=== PATIENT | female | born 1985 | race Caucasian/White ===

== ENCOUNTER 2017-04-18 05:56 | Inpatient (IN) | payer BC ==
[2017-04-17 14:24] LABS: Hematocrit 38 % (35-47); Mean Corpuscular HGB Conc 34 g/dl (31-36); Mean Corpuscular Hemoglobin 33 pg (27-31); Mean Corpuscular Volume 95 fL (80-97); Mean Platelet Volume 9 um3 (7.4-10.4); Red Blood Count 3.98 10^6/ul (4.0-5.4); Red Cell Distribution Width 13 % (10.5-15); White Blood Count 7.3 10^3/ul (3.5-10.8)
[2017-04-18] MEDS ORDERED: Clindamycin 900 MG IVPREMIX(* 900 MG/50 ML SDV IV ONE (06:43)
[2017-04-18] MEDS ORDERED: Sodium Citrate/Citric Acid* 15 ML UDC ONE (07:53)
[2017-04-18] MEDS ORDERED: Morphine PF AMP (0.5MG/ML)* 5 MG/10 ML AMP ONE (07:55)
[2017-04-18] MEDS ORDERED: Gentamicin ADULT (*) 300 MG in NS 0.9% 250 ML* 250 ML IVPB ONE (08:00)
[2017-04-18] MEDS ORDERED: EPHEDrine (Pressors)* 50 MG/ML VIAL ONE (08:33)
[2017-04-18] MEDS ORDERED: Glycopyrrolate IV* 0.2 MG/ML 1 ML VIAL ONE (08:34)
[2017-04-18] MEDS ORDERED: Phenylephrine IV* 40 MCG/ML 10 ML SYRINGE ONE (08:34)
[2017-04-18] MEDS ORDERED: Ondansetron INJ* 2 MG/ML VIAL IV PRN ×2 (08:53→08:54)
[2017-04-18] MEDS ORDERED: fentaNYL* 50 MCG/ML 2 ML VIAL (100 MCG VIAL) IV PRN (08:53)
[2017-04-18] MEDS ORDERED: DiMENhydriNATE IV* 50 MG/ML VIAL IV PUSH PRN ×2 (08:53→08:54)
[2017-04-18] MEDS ORDERED: HYDROmorphone* 1 MG/ML 1 ML SYR IV PRN (08:53)
[2017-04-18] MEDS ORDERED: diPHENhydraMINE IV* 50 MG/ML 1 ml VIAL (BENADRYL) IV PRN (08:54)
[2017-04-18] MEDS ORDERED: Nalbuphine* 20 MG/ML 1 ML VIAL IV PRN (08:54)
[2017-04-18] MEDS ORDERED: oxyCODONE/Acetamin 5/325 MG* TAB PO PRN (08:54)
[2017-04-18] MEDS ORDERED: Scopolamine 1.5 mg* PATCH TRANSDERM PRN (08:54)
[2017-04-18] MEDS ORDERED: Scopolomine PATCH Remove* 1 NOTE MISC PATCH OFF PRN (08:54)
[2017-04-18] MEDS ORDERED: HYDROcodone/ACETAMIN 5-325 MG* 1 TAB PO PRN (08:54)
[2017-04-18] MEDS ORDERED: Naloxone* 0.4 MG/ML 1 ML VIAL IV PRN (08:54)
[2017-04-18] MEDS ORDERED: Ketorolac INJ* 30 MG/ML 1 ML VIAL ONE (08:57)
[2017-04-18] MEDS ORDERED: OXYTOCIN* 10 UNITS/ML 1 ML VIAL ONE ×2 (09:05)
[2017-04-18] MEDS ORDERED: Witch Hazel PAD* JAR TOPICAL PRN (09:33)
[2017-04-18] MEDS ORDERED: Dibucaine 1% 28.35 GM TUBE PR PRN (09:33)
[2017-04-18] MEDS: Docusate CAP* 100 MG PO SCH ×2 (18:16→21:10)
[2017-04-18] MEDS: Simethicone CHEW TAB* 80 MG PO SCH ×3 (18:16→21:10)
[2017-04-18] MEDS: Ketorolac INJ* 30 MG/ML 1 ML VIAL IV PRN (19:38)
[2017-04-19] MEDS ORDERED: oxyCODONE/Acetamin 5/325 MG* TAB PO PRN (00:15)
--- NOTE | 2017-04-19 01:51 | OP ---
DATE OF OPERATION: 04/18/17 - ROOM #MCHOB-116 DATE OF : 87 SURGEON: Gavin Don MD PROGRAM MANAGEMENT INTERN: Suze Powell CNM ANESTHESIA: Spinal. ANESTHESIOLOGIST: Dr. Robertson. PRE-OP DIAGNOSIS: 39 weeks gestation with breech presentation. POST-OP DIAGNOSIS: 39 weeks gestation with breech presentation. OPERATIVE PROCEDURE: Primary low-transverse section. ESTIMATED BLOOD LOSS: 700 cc. IV FLUIDS: 2200 cc of lactated Ringer's. URINE OUTPUT: 100 cc. MATERIALS TO LAB: Cord blood. INDICATIONS: This patient was a 32-year-old 1, para 0 who presented today at 39 weeks gestation for her scheduled section. The patient was diagnosed with the fetus in the breech presentation about 3 weeks ago and an external systolic version attempt at 37 weeks was unsuccessful. This morning , she was evaluated and the fetus was still in the breech presentation on ultrasound. She was extensively counseled for the surgery and consent was signed. FINDINGS: Normal-appearing uterus, fallopian tubes, and ovaries. Delivery was productive of a female infant weighing 5 pounds 11 ounces with Apgars of 8 and 9. Time of delivery was 0840. The infant was in the footling breech presentation. COMPLICATIONS: None. DESCRIPTION OF PROCEDURE: The risks, benefits, and alternatives were described to the patient and informed consent was obtained. The patient was taken to the operating room with IV running where spinal anesthesia was induced and found to be adequate. The patient was prepped and draped in the normal sterile fashion in the dorsal supine position with leftward tilt. A Pfannenstiel skin incision was made with a scalpel and this was carried down to the underlying fascia sharply. The fascia was then scored in the midline with the scalpel. The incision was extended using Hicks scissors. The rectus muscles were dissected off the rectus fascia using blunt and sharp dissection. The rectus muscles were in the midline bluntly. The peritoneum was also entered bluntly. A bladder blade was placed. A bladder flap was created sharply using Metzenbaum scissors. A low transverse uterine incision was made with the scalpel. This was carried down to the amniotic cavity which was productive of clear fluid. The incision was extended with blunt traction. The head was elevated to the level of the incision without difficulty and delivered through the incision. With fundal pressure, the shoulders and body delivered without difficulty. The infant had an excellent tone and cried immediately on delivery. The cord was doubly clamped and cut. The infant was then handed to the awaiting kilnman. Cord blood was collected. The placenta then delivered with manual extraction. The uterus was then exteriorized and cleared of all clots and debris. Uterine incision was reapproximated using 0 Polysorb in a running-locked fashion. A second layer of imbricating sutures of 0 Polysorb was also placed with good hemostasis. The posterior cul-de-sac was irrigated with saline. The uterus was then returned to the abdomen, and the incision was reinspected and noted to be hemostatic. The peritoneum was closed with 2-0 chromic in a running fashion. The fascia was closed with 0 Polysorb in a running fashion. Subcutaneous tissues were reapproximated using 2-0 chromic and interrupted sutures. The skin was then closed with 4-0 Monocryl in a subcuticular stitch. Mastisol and Steri-Strips were placed over the incision which was then covered with a sterile bandage. The patient tolerated the procedure well. Sponge, lap, and needle counts were correct x2. [id number]/[facility] #: [id number] MTDD
[2017-04-19] MEDS: oxyCODONE/Acetamin 5/325 MG* TAB PO PRN ×5 (03:40→20:29)
[2017-04-19 06:28] LABS: Hematocrit 28 % (35-47); Hemoglobin 9.7 g/dl (12.0-16.0); Mean Corpuscular HGB Conc 35 g/dl (31-36); Mean Corpuscular Hemoglobin 34 pg (27-31); Mean Corpuscular Volume 96 fL (80-97); Mean Platelet Volume 9 um3 (7.4-10.4); Red Blood Count 2.91 10^6/ul (4.0-5.4); Red Cell Distribution Width 13 % (10.5-15); White Blood Count 7.8 10^3/ul (3.5-10.8)
[2017-04-19] MEDS: Ketorolac INJ* 30 MG/ML 1 ML VIAL IV PRN (06:34)
[2017-04-19] MEDS: Simethicone CHEW TAB* 80 MG PO SCH ×4 (09:06→20:28)
[2017-04-19] MEDS: Docusate CAP* 100 MG PO SCH ×3 (09:06→20:28)
[2017-04-19] MEDS: Ferrous Gluconate TAB* 324 MG TAB PO SCH ×2 (09:06→20:28)
[2017-04-19] MEDS: Ibuprofen TAB* 600 MG PO SCH ×2 (12:50→18:22)
[2017-04-20] MEDS: Ibuprofen TAB* 600 MG PO SCH ×3 (01:14→14:19)
[2017-04-20] MEDS: oxyCODONE/Acetamin 5/325 MG* TAB PO PRN ×2 (06:50→13:09)
[2017-04-20] MEDS: Simethicone CHEW TAB* 80 MG PO SCH ×2 (08:09→13:09)
[2017-04-20] MEDS: Ferrous Gluconate TAB* 324 MG TAB PO SCH (08:09)
[2017-04-20] MEDS: Docusate CAP* 100 MG PO SCH ×2 (08:10→14:19)
[2017-04-20 09:42] VITALS: BP 122/51
--- NOTE | 2017-04-20 11:47 | PTEDU ---
Patient Name: KAYCE CAMP KAYCE CAMP selected video: Never Ever Shake a Baby to view on 04/20/2017 at 11:46:38 AM from [id number]
== END 2017-04-20 15:00 | disposition home or self-care (01) | DRG 540 ==
LOC: MCHOB 05:56
PROVIDERS: ADMIT Obstetrics & Gynecology; ATTEND Obstetrics & Gynecology
PROC: 10D00Z1 Extraction of Products of Conception, Low, Open Approach (ICD-10-PCS; principal; 2017-04-18 07:45)
DX: O32.8XX0 Maternal care for other malpresentation of fetus, not applicable or unspecified (principal); O99.824 Streptococcus B carrier state complicating childbirth; Z3A.38 38 weeks gestation of pregnancy; Z37.0 Single live birth; Z87.891 Personal history of nicotine dependence; Z88.1 Allergy status to other antibiotic agents; Z88.0 Allergy status to penicillin; Z98.84 Bariatric surgery status
CPT/HCPCS: 36415; 85025; 85027; 86850; 86900; 86901; A9270-GY; J1580; J1885; J2590

== ENCOUNTER 2018-05-16 15:08 | Emergency (ER) | payer BC, OTHER ==
[2018-05-16 15:48] VITALS: BP 140/67
--- NOTE | 2018-05-16 16:45 | UC ---
Abdominal Pain Female HPI - HPI Summary HPI Summary: Patient with history of lymphoma and gastric sleeve surgery complains of intermittent left-sided abdominal pain and nausea 1 month. Denies fever, cough , sore throat, CP, SOB, V/D, change in urine, change in BM, vaginal symptoms. Abdominal pain described as intermittent, occasionally sharp, occasionally up to 7/10, and occurs 1-2 times a week, pain lasts for up to 2 hours at a time. Abdominal pain is worse today, and worse with deep inhalation. Pain is not improved with OTC meds. LMP 1 week ago. Patient on control. Medical history is lymphoma. Abdominal/pelvic surgical history is cholecystectomy. - History of Current Complaint Chief Complaint: UCAbdominalPain Stated Complaint: left side pain Time Seen by Provider: 05/16/18 16:15 Hx Obtained From: Patient Hx Last Menstrual Period: 05/08/2018 Onset/Duration: Gradual Onset Timing: Intermittent Episodes Lasting: Severity Initially: Mild Severity Currently: Mild Pain Intensity: 2 Pain Scale Used: 0-10 Numeric Location: Discrete At: LUQ Radiates: No Character: Aching, Sharp Aggravating Factor(s): Movement, Deep Breaths Alleviating Factor(s): Nothing Associated Signs and Symptoms: Positive: Nausea Allergies/Adverse Reactions: Allergies Allergy/AdvReac Type Severity Reaction Status Date / Time azithromycin Allergy See Comment Verified 01/16/18 12:27 Penicillins Allergy Hives Verified 01/16/18 12:27 Home Medications: Home Medications Norethindr/Eth Estradiol(Nf) [Lo Loestrin Fe (NF)] 05/16/18 [History] PMH/Surg Hx/FS Hx/Imm Hx - Surgical History Surgical History: Yes Surgery Procedure, Year, and Place: Cholecystectomy, 2016, [place]; Gastric Sleeve, 2015, [place], [id number]. ENDOSCOPY-2014; lymph node biopsy 2017 - Family History Known Family History: Positive: None Family History: no family history of cardio vascular issues reported - Social History Alcohol Use: Weekly Alcohol Amount: 3-4 GLASSES OF WINE WEEKLY Substance Use Type: None Smoking Status (MU): Never Smoked Tobacco Type: Cigarettes Amount Used/How Often: ~1 PPD X 8 YEARS Length of Time of Smoking/Using Tobacco: 20 Years Have You Smoked in the Last Year: No When Did the Patient Quit Smoking/Using Tobacco: 2012 - Immunization History Most Recent Influenza Vaccination: Not the 2015/2016 Season Most Recent Pneumonia Vaccination: none Review of Systems Constitutional: Negative Skin: Negative Eyes: Negative ENT: Negative Respiratory: Negative Cardiovascular: Negative Gastrointestinal: Abdominal Pain, Nausea Genitourinary: Negative Motor: Negative Neurovascular: Negative Musculoskeletal: Negative Neurological: Negative Psychological: Negative All Other Systems Reviewed And Are Negative: Yes Physical Exam - Summary Physical Exam Summary: Abdomen tender to palpation left upper quadrant. Mildly tender left lower quadrant. Abdominal exam otherwise unremarkable. No CVA tenderness. Triage Information Reviewed: Yes Vital Signs: Initial Vital Signs Temp 98.5 F 05/16/18 15:40 Pulse 76 05/16/18 15:40 Resp 18 05/16/18 15:40 BP 140/67 05/16/18 15:40 Pulse Ox 100 05/16/18 15:40 Vital Signs Reviewed: Yes Eye Exam: Normal Neck exam: Normal Respiratory Exam: Normal Cardiovascular Exam: Normal Abdominal Exam: Other Musculoskeletal Exam: Normal Neurological Exam: Normal Psychological Exam: Normal Skin Exam: Normal Abd Pain Female Course/Dx - Course Course Of Treatment: Patient with history of lymphoma and gastric sleeve surgery complains of intermittent left-sided abdominal pain and nausea 1 month. Denies fever, cough, sore throat, CP, SOB, V/D, change in urine, change in BM, vaginal symptoms. Abdominal pain described as intermittent, occasionally sharp, occasionally up to 7/10, and occurs 1-2 times a week, pain lasts for up to 2 hours at a time. Abdominal pain is worse today, and worse with deep inhalation. Pain is not improved with OTC meds. LMP 1 week ago. Patient on control. Medical history is lymphoma. Abdominal/pelvic surgical history is cholecystectomy. Physical exam:Abdomen tender to palpation left upper quadrant. Mildly tender left lower quadrant. Abdominal exam otherwise unremarkable. No CVA tenderness. Vital signs normal. History of gastric sleeve surgery. Advised patient to go to the ED now for better evaluation of her abdominal pain. Patient understands and approves plan. - Differential Dx/Diagnosis Provider Diagnoses: left side abdominal pain Discharge - Sign-Out/Discharge Documenting (check all that apply): Patient Departure All imaging exams completed and their final reports reviewed: No Studies - Discharge Plan Condition: Stable Disposition: HOME-RECOMMEND TO ED Patient Education Materials: Abdominal Pain (ED) Referrals: Luis Santos MD [Primary Care Provider] - Additional Instructions: Please go to the ED now for better evaluation of your abdominal pain. - Billing Disposition and Condition Condition: STABLE Disposition: Home-Recommend to ED - Attestation Statements Provider Attestation: I was available for consult. This patient was seen by the ALE. The patient was not presented to, seen by, or examined by me. -Amrita
== END 2018-05-16 16:55 | disposition home health service (06) ==
LOC: UCEAST 15:08
DX: R10.12 Left upper quadrant pain (principal); R10.32 Left lower quadrant pain; R11.0 Nausea; Z90.49 Acquired absence of other specified parts of digestive tract; Z98.84 Bariatric surgery status; Z88.1 Allergy status to other antibiotic agents; Z88.0 Allergy status to penicillin; Z87.891 Personal history of nicotine dependence
CPT/HCPCS: 81003; 99212; G0463

== ENCOUNTER 2018-05-16 17:16 | Emergency (ER) | payer BC, OTHER ==
[2018-05-16 19:05] VITALS: BP 121/63
== END 2018-05-16 19:10 | disposition left against medical advice (07) ==
LOC: ED 17:16
DX: R10.9 Unspecified abdominal pain (principal); Z53.21 Procedure and treatment not carried out due to patient leaving prior to being seen by health care provider

== ENCOUNTER → 2018-09-20 10:15 | Day surgery (SDC) | payer BC, OTHER ==
[~2018-09-20 10:15] MED LIST: Acetaminophen TAB* 325 MG PO PRN; Buffered Lidocaine 0.9% SYRIN* 5 ML/SYR SYRINGE INTRADERM ONE; Clindamycin 900 MG/D5W BAG(*) 900 MG/50 ML BAG IVPB ONE; DiMENhydriNATE IV* 50 MG/ML VIAL IV PUSH PRN; Famotidine IV* 10 MG/ML 2 ML (20 mg) ONE; HYDROcodone/ACETAMIN 5-325 MG* 1 TAB PO PRN; Lactated Ringers 1000 ML Bag* 1,000 ML IV SCH; Levalbuterol 0.63MG/3ML NEB* UNIT OF USE INH PRN; Lidocain 1% EPI 1:100,000 * 30 ML MDV ONE; Lidocaine 2% PF * 5 ML VIAL ONE; Midazolam* 1 MG/ML 2 ML VIAL (2 MG) ONE; Naloxone* 0.4 MG/ML 1 ML VIAL IV PRN; Ondansetron INJ* 2 MG/ML VIAL IV PRN; PROCHLORPERAZINE INJ 5 MG/ML 2 ML VIAL IV PRN; Propofol* 10 MG/ML 20 ML BTL ONE; fentaNYL* 50 MCG/ML 2 ML VIAL (100 MCG VIAL) ONE
--- NOTE | 2018-09-20 14:10 | BRIEFOPN ---
Brief Operative Note - Surgery Procedures: Procedures Pre-OP Diagnoses: lymphoma Post-op Diagnosis: same Procedure: Insertion of powerport Surgeon: Pedro Asst: none Anethesia: local, ALICIA Diehl EBL: minimal IVF: minimal Specimen: none Drains: none 8Fr single lumen power port via R SCV
[2018-09-20 16:03] VITALS: BP 127/73
--- NOTE | 2018-09-20 21:43 | OP ---
CC: Dr. Devyn Olivera; Dr. Luis Santos * DATE OF OPERATION: 09/20/18 - [facility] DATE OF : 87 SURGEON: Jordan Vasquez MD. CONDENSER OPERATOR: None. ANESTHESIOLOGIST: Dr. Diehl. ANESTHESIA: Local MAC anesthesia. PRE-OP DIAGNOSIS: Lymphoma. POST-OP DIAGNOSIS: Lymphoma. OPERATIVE PROCEDURE: Insertion of PowerPort. ESTIMATED BLOOD LOSS: Minimal. FLUIDS: Minimal crystalloid fluid given. CATHETER: 8-Guamanian PowerPort catheter inserted via the right subclavian vein. DESCRIPTION OF PROCEDURE: The patient was identified in the preoperative area, marked, and consent signed. She was taken to the operating room, placed on the operating table in supine position. Gentle sedation was given. Preoperative antibiotics were given. Sequential devices were placed on bilateral lower extremities. The patient's right upper chest and neck were prepped and draped in standard surgical fashion, a time-out was performed. Injection of lidocaine was carried out along the proposed stick site. The right subclavian vein was accessed and a wire inserted towards the superior vena cava. This was confirmed with fluoroscopy. Next, an incision was made inferior to the wire and a pocket was made for the PowerPort. The wire was then brought into this incision. Next, under fluoroscopy, the vein was dilated. This proved somewhat difficult, but we were able to pass the dilator in and then the split-away catheter in as well. The 8-Guamanian tubing was then inserted and cut to size after the split- away catheter removed. It was attached to the pre-flushed PowerPort, which was then placed into the pocket and sutured at the lateral aspect, medial aspect, and at the hub with 0 Prolene suture. We then irrigated, aspirated blood with ease, and injected heparinized saline, and closed the incision in a typical fashion with 3-0 Vicryl, followed by 4-0 Monocryl subcuticular suture. Steri- Strips and sterile dressing were applied. The patient tolerated the procedure well and was transferred to the PACU in stable condition. [id number]/[facility] #: [id number] [facility]
== END | disposition home or self-care (01) ==
LOC: OR 10:15
PROVIDERS: ATTEND Surgery
DX: C82.18 Follicular lymphoma grade II, lymph nodes of multiple sites (principal); Z87.891 Personal history of nicotine dependence; Z88.0 Allergy status to penicillin
CPT/HCPCS: 71045; 76000; 81025; C1788; J1642; J2250; J2704; J3010

== ENCOUNTER 2018-10-21 10:43 | Emergency (ER) | payer BC, OTHER ==
[2018-10-21 11:30] VITALS: BP 131/80
--- NOTE | 2018-10-21 11:47 | UC ---
"[facility] Dental HPI - History of Current Complaint Chief Complaint: UCDentalProblem Stated Complaint: SORE TOOTH Time Seen by Provider: 10/21/18 11:44 Hx Last Menstrual Period: 09/21/18 Pain Intensity: 4 - Allergies/Home Medications Allergies/Adverse Reactions: Allergies Allergy/AdvReac Type Severity Reaction Status Date / Time azithromycin Allergy Swelling Verified 10/21/18 11:30 and Hives on Arms Penicillins Allergy Hives Verified 10/21/18 11:30 PMH/Surg Hx/FS Hx/Imm Hx - Surgical History Surgical History: Yes Surgery Procedure, Year, and Place: Cholecystectomy, 2015, [place]; Gastric Sleeve, 2014, [place], [id number]. ENDOSCOPY-2014; Lymph Node Biopsy 2016 - Family History Known Family History: Positive: None Family History: no family history of cardio vascular issues reported - Social History Alcohol Use: Occasionally Alcohol Amount: 1-2 GLASSES OF WINE WEEKLY Substance Use Type: None Smoking Status (MU): Former Smoker Type: Cigarettes Amount Used/How Often: ~=1 PPD X 8 YEARS Length of Time of Smoking/Using Tobacco: 20 Years Have You Smoked in the Last Year: No When Did the Patient Quit Smoking/Using Tobacco: fall - Immunization History Most Recent Influenza Vaccination: Not the Season Most Recent Pneumonia Vaccination: none Physical Exam Vital Signs: Initial Vital Signs Temp 99.1 F 10/21/18 11:27 Pulse 95 10/21/18 11:27 Resp 12 10/21/18 11:27 BP 131/80 10/21/18 11:27 Pulse Ox 100 10/21/18 11:27 Dental Complaint Course/Dx - Course Course Of Treatment: This report was requested by: Sally Sanches | Reference # : [id number] Discharge - Discharge Plan Referrals: Luis Santos MD [Primary Care Provider] -"
== END 2018-10-21 12:12 | disposition home or self-care (01) ==
LOC: UCEAST 10:43
DX: K08.89 Other specified disorders of teeth and supporting structures (principal); Z88.1 Allergy status to other antibiotic agents; Z88.0 Allergy status to penicillin; Z87.891 Personal history of nicotine dependence
CPT/HCPCS: 99212; G0463

== ENCOUNTER 2019-06-09 09:38 | Emergency (ER) | payer BC, OTHER ==
[2019-06-09 10:11] VITALS: BP 128/74
--- NOTE | 2019-06-09 10:39 | UC ---
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 States this morning she noticed swelling under her tongue as well. She is followed by Dr. Marti for her lymphoma. Denies fever, chills, dental pain, sore throat, dysphagia, or difficulty breathing. - History of Current Complaint Chief Complaint: UCGeneralIllness Stated Complaint: DENTAL/ORAL Time Seen by Provider: 06/09/19 10:18 Hx Obtained From: Patient Hx Last Menstrual Period: using mirana Pain Intensity: 2 - Allergies/Home Medications Allergies/Adverse Reactions: Allergies Allergy/AdvReac Type Severity Reaction Status Date / Time azithromycin Allergy Swelling Verified 06/09/19 10:11 and Hives on Arms Penicillins Allergy Hives Verified 06/09/19 10:11 Home Medications: Home Medications Levonorgestrel (Iud) [Mirena IUD] 0 mcg 06/09/19 [History] PMH/Surg Hx/FS Hx/Imm Hx Previously Healthy: Yes Other Cancer History: Stage IV follicular lymphoma - Surgical History Surgical History: Yes Surgery Procedure, Year, and Place: Cholecystectomy, 2015, [place]; Gastric Sleeve, 2014, [place], [id number]. ENDOSCOPY-2014; Lymph Node Biopsy 2016 - Family History Known Family History: Positive: Non-Contributory - Social History Occupation: Employed Full-time Lives: With Family Alcohol Use: Occasionally Alcohol Amount: 1-2 GLASSES OF WINE WEEKLY Substance Use Type: None Smoking Status (MU): Former Smoker Type: Cigarettes Amount Used/How Often: ~=1 PPD X 8 YEARS Length of Time of Smoking/Using Tobacco: 20 Years Have You Smoked in the Last Year: No When Did the Patient Quit Smoking/Using Tobacco: fall - Immunization History Most Recent Influenza Vaccination: Not the 2016/2016 Season Most Recent Pneumonia Vaccination: none Review of Systems All Other Systems Reviewed And Are Negative: Yes Constitutional: Negative: Fever, Chills, Fatigue Skin: Negative: Rash Eyes: Negative: Drainage, Eye Redness ENT: Negative: Sore Throat, Ear Ache, Nasal Discharge, Sinus Congestion, Sinus Pain/Tenderness Respiratory: Negative: Shortness Of Breath, Cough Cardiovascular: Negative: Palpitations, Chest Pain Gastrointestinal: Positive: Negative Genitourinary: Positive: Negative Musculoskeletal: Positive: Negative Neurological: Positive: Negative Is Patient Immunocompromised?: No Physical Exam - Summary Physical Exam Summary: GENERAL APPEARANCE: Well developed, well nourished, alert and cooperative, and appears to be in no acute distress. HEAD: Moderate edema noted along the left mandible and neck with mild erythema. EYES: Conjunctiva clear. No drainage. EARS: External auditory canals and tympanic membranes clear, hearing grossly intact. NOSE: No nasal discharge. THROAT: Pharynx normal. No tonsilar inflammation, swelling, exudate, or lesions. Uvula midline. Mild edema noted under left side of tongue. No dental abscess or lesions noted. NECK: Significant left sided anterior cervical lymphadenopathy. CARDIAC: Normal S1 and S2. No S3, S4 or murmurs. Rhythm is regular. There is no peripheral edema, cyanosis or pallor. Extremities are warm and well perfused. Capillary refill is less than 2 seconds. Peripheral pulses intact. LUNGS: Clear to auscultation without rales, rhonchi, wheezing or diminished breath sounds. ABDOMEN: Positive bowel sounds. Soft, nondistended, nontender. No guarding or rebound. No masses or hepatosplenomegally. MUSKULOSKELETAL: ROM intact to all extremities. No joint erythema or tenderness. Normal muscular development. Normal gait. SKIN: Skin normal color, texture and turgor with no lesions or eruptions. 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 States this morning she noticed swelling under her tongue as well. She is followed by Dr. Marti for her lymphoma. Denies fever, chills, dental pain, sore throat, dysphagia, or difficulty breathing. Mildly elevated temperature of 100.0 F. Mildly tachycardic otherwise vital signs stable. Patient had moderate edema noted along the left mandible and neck with mild erythema, normal pharynx without tonsilar swelling or exudate, mild edema noted under left side of tongue without dental abscess or lesions noted, patent airway, significant left anterior cervical lymphadenopathy, and otherwise unremarkable exam. I discussed with the patient that with her history, mildly elevated temperature, and exam findings I feel that she needs to be further evaluated in the emergency room at this time. Patient is agreeable to this and is electing to go to [facility] emergency room via private vehicle at this time. - Differential Dx/Diagnosis Differential Diagnosis/HQI/PQRI: Giles's Angina, Pharyngitis, Other - dental infection, lymphoma Provider Diagnosis: Facial swelling, Lymphadenopathy Discharge ED - Sign-Out/Discharge Documenting (check all that apply): Patient Departure All imaging exams completed and their final reports reviewed: No Studies - Discharge Plan Condition: Stable Disposition: HOME-RECOMMEND TO ED Referrals: Luis Santos MD [Primary Care Provider] - Additional Instructions: With your history of lymphoma, low grade temperature, facial swelling, and significant swelling of the lymph nodes I am recommending that you go to the emergency room for further evaluation. Please go directly to the emergency room from here. - Billing Disposition and Condition Condition: STABLE Disposition: Home-Recommend to ED
== END 2019-06-09 10:45 | disposition home health service (06) ==
LOC: UCCORT 09:38
DX: R22.0 Localized swelling, mass and lump, head (principal); R59.1 Generalized enlarged lymph nodes; Z87.891 Personal history of nicotine dependence; Z88.0 Allergy status to penicillin
CPT/HCPCS: 99212; G0463

== ENCOUNTER 2019-06-09 11:57 | Inpatient (IN) | payer BC, OTHER ==
[2019-06-09] MEDS ORDERED: Lactated Ringers 1000 ML Bag* 1,000 ML IV.FLUID IV ONE (13:58)
[2019-06-09] MEDS ORDERED: Acetaminophen TAB* 325 MG PO ONE (14:00)
[2019-06-09] MEDS ORDERED: Clindamycin 600 MG IVPREMIX(* 600 MG/50 ML SDV IV ONE (14:12)
--- NOTE | 2019-06-09 14:12 | ED ---
Throat Pain/Nasal Congestion - HPI Summary HPI Summary: This pt is a 34 y/o female, on remission for non-hodgkin's lymphoma since February 2019, presenting to [facility] c/o swollen gums since 2 days ago. Pt reports her gums are not bleeding but gum swelling has been worsening. She notes her swelling today has spread to under her tongue, her neck and lymph nodes. Additionally she states she has a stiff neck and headache since 2 days ago and today she has a low grade fever. Pt went to Urgent Care today and was referred to the ED for further testing. - History of Current Complaint Chief Complaint: EDGeneral Time Seen by Provider: 06/09/19 13:57 Hx Obtained From: Patient Onset/Duration: Lasting Days, Still Present Severity: Moderate Associated Signs And Symptoms: Negative: Dysphagia, FB Sensation, Drooling, Wheezing, Hoarseness, Sinus Discomfort, Nasal Discharge Cough: None Related History: Other (Noted In Comments) - on remission for non-hodgkin's lymphoma - Allergies/Home Medications Allergies/Adverse Reactions: Allergies Allergy/AdvReac Type Severity Reaction Status Date / Time azithromycin Allergy Swelling Verified 06/09/19 10:11 and Hives on Arms Penicillins Allergy Hives Verified 06/09/19 10:11 PMH/Surg Hx/FS Hx/Imm Hx Endocrine/Hematology History: Reports: Hx Bone Marrow Disease - Follicular Lymphoma Grade II, Lymp nodes of multiple sites, Hx Anemia - DURING Denies: Hx Diabetes Cardiovascular History: Denies: Hx Hypertension - ELEVATED PRIOR TO WEIGHT LOSS, Other Cardiovascular Problems/Disorders Respiratory History: Reports: Other Respiratory Problems/Disorders - Rhinitis Comment Only: Hx Sleep Apnea - INCONCLUSIVE TESTING PRIOR TO WEIGHT LOSS- STATED NO FURTHER F/U REQUIRED GI History: Reports: Hx Hiatal Hernia - ?- STATES A HERNIA WAS REPAIRED DURING GASTRIC SLEEVE SURGERY, Other GI Disorders - Sleeve Gastrectomy 2014, Constipation History: Reports: Other Problems/Disorders - Polycystic Ovaries Denies: Hx Dialysis, Hx Renal Disease Musculoskeletal History: Reports: Hx Bursitis - 2009-SHOULDER Denies: Other Musculoskeletal History Sensory History: Reports: Hx Contacts or Glasses - Glasses and contacts, to wear glasses the day of surgery Denies: Hx Hearing Aid Opthamlomology History: Reports: Hx Contacts or Glasses - Glasses and contacts, to wear glasses the day of surgery Neurological History: Reports: Hx Migraine - 10/2016- DURING Denies: Other Neuro Impairments/Disorders - Cancer History Cancer Type, Location and Year: Lymphoma-remission in February 2019 - Surgical History Surgical History: Yes Surgery Procedure, Year, and Place: Cholecystectomy, 2016, [place]; Gastric Sleeve, 2015, [place], [id number]. ENDOSCOPY-2014; Lymph Node Biopsy 2017 Hx Anesthesia Reactions: Yes - Buring C section BP droopped 58/34 Infectious Disease History: No Infectious Disease History: Denies: Traveled Outside the [place] in Last 30 Days - Family History Known Family History: Negative: Cardiac Disease Family History: no family history of cardio vascular issues reported - Social History Alcohol Use: Occasionally Alcohol Amount: 1-2 GLASSES OF WINE WEEKLY Substance Use Type: Reports: None Smoking Status (MU): Former Smoker Type: Cigarettes Amount Used/How Often: ~=1 PPD X 8 YEARS Length of Time of Smoking/Using Tobacco: 20 Years Have You Smoked in the Last Year: No Review of Systems Positive: Fever ENT: Other - POSITIVE: gum redness and swelling Musculoskeletal: Other - POSITIVE: stiff neck, neck swelling Positive: Headache All Other Systems Reviewed And Are Negative: Yes Physical Exam - Summary Physical Exam Summary: Appearance: The patient is well-nourished in no acute distress and in no acute pain. Skin: The skin is warm and dry, and skin color reflects adequate perfusion. HEENT: The head is normocephalic and atraumatic. The pupils are equal and reactive. The conjunctivae are clear and without drainage. Nares are patent and without drainage. Mouth reveals moist mucous membranes. Mouth has erythema of the lower gum and floor of her mouth. The external ears are intact. The ear canals are patent and without drainage. The tympanic membranes are intact. Neck: The neck is supple with full range of motion and non-tender. There are no carotid bruits. There is no neck vein distension. Patient has anterior cervical lymphadenopathy. Respiratory: Chest is non-tender. Lungs are clear to auscultation and breath sounds are symmetrical and equal. Cardiovascular: Heart is tachycardic but regular rhythm. There is no murmur or rub auscultated. There is no peripheral edema and pulses are symmetrical and equal. Abdomen: The abdomen is soft and non-tender. There are normal bowel sounds heard in all four quadrants and there is no organomegaly palpated. Musculoskeletal: There is no back tenderness noted. Extremities are non-tender with full range of motion. There is good capillary refill. There is no peripheral edema or calf tenderness elicited. Neurological: Patient is alert and oriented to person, place and time. The patient has symmetrical motor strength in all four extremities. Cranial nerves are grossly intact. Deep tendon reflexes are symmetrical and equal in all four extremities. Psychiatric: The patient has an appropriate affect and does not exhibit any anxiety or depression. Triage Information Reviewed: Yes Vital Signs On Initial Exam: Initial Vitals Temp Pulse Resp BP Pulse Ox 100.7 F 134 17 161/94 99 06/09/19 12:00 06/09/19 12:00 06/09/19 12:00 06/09/19 12:00 06/09/19 12:00 Vital Signs Reviewed: Yes Procedures - Procedure Summary Procedure Summary: I performed a lumbar puncture after obtaining informed consent and a time out. She was in a sitting position and after numbing the skin 22-gauge needle was used to enter the CSF on the first pass. About 6 cc of clear liquid was obtained and the needle was removed. She tolerated the procedure well. Because she is neutropenic I performed the procedure in a sterile gown with as aseptic a surroundings as I could obtain. Diagnostics - Vital Signs Vital Signs Temp Pulse Resp BP Pulse Ox 06/09/19 12:00 100.7 F 134 17 161/94 99 - Laboratory Result Diagrams: 06/10/19 06:04 06/10/19 06:04 Lab Statement: Any lab studies that have been ordered have been reviewed, and results considered in the medical decision making process. - Radiology Chest XR Radiology Interpretation Completed By: Radiologist Summary of Radiographic Findings: IMPRESSION: LINES AND TUBES ABOVE. NO ACTIVE CARDIOPULMONARY DISEASE. Dr. Mabry has reviewed this radiology report. - CT Neck CT Interpretation Completed By: Radiologist Summary of CT Findings: NO LYMPHADENOPATHY BY SIZE CRITERIA. NO LOCULATED FLUID COLLECTION TO SUGGEST ABSCESS. Dr. Mabry has reviewed this radiology report. Re-Evaluation - Re-Evaluation First Eval Re-Evaluation Time: 16:42 Comment: Discussed results with patient. Patient agrees to have lumbar puncture performed. Risks and benefits discussed. Second Eval Re-Evaluation Time: 17:00 Comment: Lumbar puncture performed without complication. EENT Course/Dx - Course Course Of Treatment: Ms. Quinones presented with a concern for pain in her gums and mouth. She was noted to have a fever and be tachycardic when I saw her. However she was nontoxic in appearance. I saw her about 2 hours after presentation and immediately ordered fluids and clindamycin based on the possibility of an intraoral infection. She did not have brawny edema on the floor of her mouth but was tender and erythematous. When her white blood cell count returned at 1.3 with an ANC of 0, I contacted Dr. Boucher who recommended cefepime and admission to the hospitalist. I spoke with Dr. Fuentes of the hospitalists for admission. They requested an LP which I performed obtaining 6 cc of clear fluid. She had an opening pressure of 21 which was about the level of her head as the procedure was performed sitting. - Diagnoses Provider Diagnoses: Neutropenia, Fever - Provider Notifications Discussed Care Of Patient With: Tara Marti Time Discussed With Above Provider: 15:41 Instructed by Provider To: Other - Discussed patient case with Dr. Marti, oncologist, who recommended Cefepime and that the patient be admitted to [facility]. At 1614, discussed patient case with Dr. Fuentes, hospitalist, who accepted the patient for admission to [facility]. At 1640, discussed patient case with Gato Richmond NP, who agreed with need to perform lumbar puncture procedure. - Critical Care Time Critical Care Time: 30-74 min - 30 minutes Discharge ED - Sign-Out/Discharge Documenting (check all that apply): Patient Departure - Admit Patient Received Moderate/Deep Sedation with Procedure: No - Discharge Plan Condition: Fair Disposition: ADMITTED TO [facility] - Billing Disposition and Condition Condition: FAIR Disposition: Admitted to [facility] - Attestation Statements Document Initiated by Lauren: Yes Documenting Scribe: Manju Ross Provider For Whom Lauren is Documenting (Include Credential): Umang Mabry MD Scribe Attestation: Manju Mccarthy, scribed for Umang Mabry MD on 06/10/19 at 0922. Scribe Documentation Reviewed: Yes Provider Attestation: The documentation as recorded by the Manju rangel accurately reflects the service I personally performed and the decisions made by me, Umang Mabry MD Status of Scribe Document: Viewed
[2019-06-09 14:35] LABS: Hematocrit 40 % (35-47); Hemoglobin 13.8 g/dL (12.0-16.0); Mean Corpuscular HGB Conc 35 g/dL (31-36); Mean Corpuscular Hemoglobin 31 pg (27-31); Mean Corpuscular Volume 89 fL (80-97); Mean Platelet Volume 8.1 fL (7.4-10.4); Platelet Count 242 10^3/uL (150-450); Red Blood Count 4.47 10^6 /uL (3.70-4.87); Red Cell Distribution Width 13 % (10-15); White Blood Count 1.3 10^3/uL (3.5-10.8)
[2019-06-09 14:42] LABS: Activated Partial Thrombo Time 36.5 seconds (26.0-38.0); INR 1.18 (0.82-1.09)
[2019-06-09 14:56] LABS: Albumin 4.5 g/dL (3.2-5.2); Albumin/Globulin Ratio 1.6 (1-3); BUN/Creatinine Ratio 15.5 (8-20); C Reactive Protein 129.52 mg/L (<8.01); Calcium 9.3 mg/dL (8.6-10.3); EGFR African American 114.7 (>60); EGFR Non-African American 94.8 (>60); Globulin 2.8 g/dL (2-4); Potassium 3.6 mmol/L (3.5-5.0); Total Bilirubin 1.7 mg/dL (0.2-1.0); Total Protein 7.3 g/dL (6.4-8.9)
[2019-06-09 15:04] LABS: HCG Pregnancy 0.94 mIU/mL
[2019-06-09] MEDS ORDERED: Iohexol 300* (CONTRAST) 10 ML SDV IV ONE (15:22)
[2019-06-09 15:39] LABS: ABS Lymphocytes 0.6 10^3/ul (1.0-4.8); ABS Monocytes 0.6 10^3/ul (0-0.8); Eosinophil % 0.6 %; Lymphocyte % 49.3 %; Nucleated Red Blood Cells % 0.1
[2019-06-09 15:44] LABS: Microcytosis 1+
[2019-06-09] MEDS ORDERED: Cefepime 2 GM in Dextrose(*) 2 GM/50 ML BAG IV ONE (16:00)
[2019-06-09] MEDS ORDERED: Ondansetron INJ* 2 MG/ML VIAL IV PRN (17:00)
[2019-06-09 17:37] LABS: Body Fluid Source Cerebral Spinal
[2019-06-09 17:54] LABS: CSF Glucose 66 mg/dL (40-70)
[2019-06-09 17:59] LABS: Urine Appearance Clear; Urine Bacteria 1+ (Absent); Urine Bilirubin Negative (Negative); Urine Blood 1+ (Negative); Urine Color Yellow; Urine Glucose Negative (Negative); Urine Ketones Negative (Negative); Urine Nitrite Negative (Negative); Urine Protein Negative (Negative); Urine Red Blood Cell Trace(0-2/hpf) (Absent); Urine Specific Gravity 1.026 (1.010-1.030); Urine Squamous Epithelial Cell Present (Absent); Urine Urobilinogen Negative (Negative); Urine White Blood Cell Trace(0-5/hpf) (Absent)
[2019-06-09] MEDS ORDERED: NS 0.9% IVPB SCH ×2 (18:00)
[2019-06-09] MEDS ORDERED: Acyclovir IV(*) 500 MG/10 ML 100 ML VIAL (500 MG) IVPB SCH (18:00)
[2019-06-09] MEDS ORDERED: ACYCLOVIR IVPB SCH ×2 (18:00)
--- NOTE | 2019-06-09 19:10 | HP ---
CC: Dr. Marti; Dr. Rincon; Dr. Santos * HISTORY AND PHYSICAL: DATE OF ADMISSION: 06/09/19 PRIMARY CARE PROVIDER: Dr. Santos. MY ATTENDING PHYSICIAN WHILE IN THE HOSPITAL: Dr. Jaime Fuentes * (report being dictated by Reji Richmond NP). CONSULTING ID SPECIALIST: Dr. Rincon. CONSULTING ONCOLOGIST/WAX BLENDER: Dr. Marti. CHIEF COMPLAINT: 1. Fever. 2. Dental pain. 3. Headache. 4. Neck pain. HISTORY OF PRESENT ILLNESS: Mrs. Quinones is a 34-year-old female patient who has a history of follicular lymphoma, last treatment was in January and has subsequently had been doing well with the exception on she developed pain and swelling in the lower part of her gumline. She went to her dentist, they could not find anything wrong. She noticed that underneath her chin, she started to notice some swelling there and she in addition to this was also been having headache and fever right along with this, which was concerning to her. The pain was not getting any better, the swelling was not getting better. She was having persistent fever and chills, so she came into the ER today. While in the ER, it was noted that she did have a absolute neutrophil count of 0, but again had not been receiving chemo treatment in sometime. Because of these findings, there was concern and we are asked to evaluate for admission. She denies any chest pain, denies abdominal pain, denies having any urinary symptoms , and denies having any back pain with the exception that she states stating that it hurts in her neck. Because of these, again the findings on her labs, and her complaints we were asked to evaluate for admission. PAST MEDICAL HISTORY: Significant for follicular lymphoma. PAST SURGICAL HISTORY: 1. She has had gastric bypass. 2. Laparoscopic cholecystectomy. 3. PowerPort placement. 4. Lymph node biopsy. HOME MEDICATIONS: She does have a Mirena IUD, otherwise does not take any meds routinely. ALLERGIES: Include ZITHROMAX and PENICILLIN. FAMILY HISTORY: Her mother was diabetic. Father's history is unknown. SOCIAL HISTORY: She does not smoke. Occasionally drinks wine. She works for [employer], here in [place]. Surrogate decision maker is . REVIEW OF SYSTEMS: There is a documented fevers. She denied any significant weight change. There is no ear discharge. There is no rhinorrhea. There is no sore throat. There is no thyroid enlargement. She denied having any chest pain. There is no orthopnea. There is no nocturnal dyspnea. No abdominal pain. No nausea. No vomiting. No dysuria. No frequency. No seizure. No loss of consciousness. No pruritus. No skin ulcerations. Review of 14 systems completed, all others negative. PHYSICAL EXAMINATION GENERAL: At this time, Ms. Quinones is a 34-year-old female patient. She is well nourished, well developed. She is sitting in the ED stretcher. She does not appear to be in acute distress. VITAL SIGNS: Blood pressure 161/94, pulse 134, respirations 17, O2 sat 99%, temperature 100.7. HEENT: Head: Atraumatic. Normocephalic. Eyes: EOMs are intact. Sclerae anicteric, not pale. There were some mild swelling in the lower gumline, but not erythema. NECK: Supple. She was able to move the neck freely, but again she had pain with range of motion. Throat: Oral mucosa appears to be moist. No oropharyngeal erythema. LUNGS: Clear to auscultation bilaterally. No wheezes, rales, or rhonchi. HEART: Sounds S1, S2. Regular rate and rhythm. No murmur rubs or gallops. ABDOMEN: Soft, it was flat, nontender. Bowel sounds are present. EXTREMITIES: Pulses were 2+ throughout. She had no peripheral edema. She is moving all 4 extremities with 5/5 strength. NEUROLOGICAL: She is awake, alert. She is oriented x3. Tongue midline, Cranberry Grower equal. She had no gross focal deficits. SKIN: The skin is intact. DIAGNOSTIC STUDIES/LAB DATA: Labs revealed a WBC of 1.3, RBC of 4.47, hemoglobin of 13.8, hematocrit of 40, and platelet count of 242, absolute neutrophil 0, absolute lymph 0.6, INR 1.18, PTT of 36.1. Sodium 136, potassium 3.6, chloride 101, bicarb 28, BUN 11, creatinine 0.71, glucose 103, lactic 0.6, calcium 9.3, total bili 1.7, AST 8, ALT 6, alk phos 48, troponin 0, CRP 129, albumin of 4.5, beta hCG was 0.94. She had neck CT obtained today, which revealed no lymphadenopathy by size criteria, no loculated fluid collection to suggest abscess. Chest x-ray obtained today revealed no active cardiopulmonary disease. Old medical records reviewed. ASSESSMENT AND PLAN: Mrs. Quinones is a 34-year-old female patient coming into the ED today with complaints of neck pain, headache, having swelling in her lower gumline and swelling near her chin and neck area. She came in presenting , it was noted that she was neutropenic. In addition to this, was also noted she had a high fever. Because of these findings, we are asked to evaluate for admission. She will be admitted under inpatient status for: 1. Sepsis with unclear source. At this point again, she will be treated with fluid. She did receive 30 cc per kg. She did receive antibiotics, I am going to put her on cefepime 2 g every 8 hours because of the neutropenia and I am actually going to cover her with azithromycin and because of the headache and neck pain, I do think that is appropriate to go ahead with an LP to look for other causes. I will check CSF for cell studies, we will send cultures, we will check Lyme. I will also check West Nile, I will check HSV given the gum pain that she was describing and now this neck and headache, I do want to make sure that she does not have HSV encephalitis and we will also check Lyme and I do note that the ER has not sent off EBV panel as well, which I agree with. I also will place a consult to ID and given the history of lymphoma, I am also placing a consult to Dr. Marti from Oncology/Hematology. We will continue with broad-spectrum antibiotic coverage and we will update and narrow the coverage as studies come back and she will be [place] cultured. 2. History of lymphoma. Again, I am consulting with Hematology/ oncology. 3. DVT prophylaxis. I have ordered SCDs. 4. Code status. Full code. 5. Fluids, electrolytes, and nutrition. She can have a regular diet. TIME SPENT: Time spent on the admission 60 minutes, greater than half of the time spent [id number] with patient obtaining my history and physical, other half time was spent on going over the plan of care with the patient and implementing the plan of care. I did discuss plan of care with my attending, Dr. Fuentes; he is in agreement. REJI RICHMOND NP [id number]/[facility] #: [id number] MINDA
[2019-06-09] MEDS: NS 0.9% 1000 ML** 1,000 ML IV SCH (19:59)
[2019-06-10] MEDS: Acetaminophen TAB* 325 MG PO PRN ×4 (00:10→22:07)
[2019-06-10] MEDS: Cefepime(*) 2 GM in NS 0.9% 50 ML* 50 ML IVPB SCH ×3 (01:23→17:38)
[2019-06-10] MEDS ORDERED: Cefepime 2 GM in Dextrose(*) 2 GM/50 ML BAG IV SCH (02:00)
[2019-06-10] MEDS: NS 0.9% 1000 ML** 1,000 ML IV SCH ×2 (02:21→15:05)
[2019-06-10 06:43] LABS: INR 1.2 (0.82-1.09)
[2019-06-10 06:46] LABS: ABS Lymphocytes 0.3 10^3/ul (1.0-4.8); ABS Monocytes 0.5 10^3/ul (0-0.8); Hematocrit 36 % (35-47); Hemoglobin 12.6 g/dL (12.0-16.0); Lymphocyte % 39.4 %; Mean Corpuscular HGB Conc 35 g/dL (31-36); Mean Corpuscular Hemoglobin 31 pg (27-31); Mean Corpuscular Volume 89 fL (80-97); Nucleated Red Blood Cells % 0.2; Platelet Count 201 10^3/uL (150-450); Red Blood Count 4.09 10^6 /uL (3.70-4.87); Red Cell Distribution Width 13 % (10-15); White Blood Count 0.8 10^3/uL (3.5-10.8)
[2019-06-10 06:56] LABS: BUN/Creatinine Ratio 14.3 (8-20); Calcium 8.5 mg/dL (8.6-10.3); EGFR African American 131.7 (>60); EGFR Non-African American 108.8 (>60); Potassium 3.5 mmol/L (3.5-5.0)
--- NOTE | 2019-06-10 08:03 | PN ---
Progress Note - Progress Note Date of Service: 06/10/19 SOAP: Patient very well known to me. H/O high grade follicular lymphoma sp R-CHOP chemotherapy finishing in January of 2019, clinically [place]. Comes in now with new onset mouth and submandibular tenderness since with low grade fevers. In ER found to be profoundly neutropenic, though with Nl Hb and platelet count. CT neck reassuringly without adenopathy by size criteria and no clear abscess. LP done for neck stiffness without leukocytosis. denies rash, known tick bite, or clear sick contact. no weight loss. just seen by me in the office a week or so ago and feeling great. denies diarrhea Subjective: neck continues to be tender mainly in submandibular region and gums "swollen" Objective: Vital Signs Temp Pulse Resp BP Pulse Ox 100.8 F 90 20 101/49 98 06/10/19 06:00 06/10/19 06:00 06/10/19 06:00 06/10/19 02:30 06/10/19 02:30 perr eomi op: +mucositis no gifty in neck CTA bl bilateral axillary adenopathy (chronic) s1 s2 nl soft nt +bs no le edema no rash A+O x 3, nonfocal neurological exam Laboratory Results - last 24 hr 06/09/19 06/09/19 06/09/19 14:18 14:18 14:18 WBC 1.3 L RBC 4.47 Hgb 13.8 Hct 40 MCV 89 MCH 31 MCHC 35 RDW 13 Plt Count 242 MPV 8.1 Neut % (Auto) 0.2 Lymph % (Auto) 49.3 Potter % (Auto) 49.9 Eos % (Auto) 0.6 Baso % (Auto) 0.0 Absolute Neuts (auto) 0.0 L* Absolute Lymphs (auto) 0.6 L Absolute Monos (auto) 0.6 Absolute Eos (auto) 0.0 Absolute Basos (auto) 0.0 Absolute Nucleated RBC 0.0 Neutrophils % 0.0 Lymphocytes % 51.0 Monocytes % 49.0 Nucleated RBC % 0.1 Normal RBC Morphology Not Reportable Microcytosis 1+ Macrocytosis 1+ INR (Anticoag Therapy) 1.18 H APTT 36.5 Sodium 136 Potassium 3.6 Chloride 101 Carbon Dioxide 28 Anion Gap 7 BUN 11 Creatinine 0.71 Est GFR ( Amer) 114.7 Est GFR (Non-Af Amer) 94.8 BUN/Creatinine Ratio 15.5 Glucose 103 H Lactic Acid Calcium 9.3 Total Bilirubin 1.70 H AST 8 L ALT 6 L Alkaline Phosphatase 48 Troponin I 0.00 C-Reactive Protein 129.52 H Total Protein 7.3 Albumin 4.5 Globulin 2.8 Albumin/Globulin Ratio 1.6 Beta HCG, Quant 0.94 Urine Color Urine Appearance Urine pH Ur Specific [place] Urine Protein Urine Ketones Urine Blood Urine Nitrate Urine Bilirubin Urine Urobilinogen Ur Leukocyte Esterase Urine WBC (Auto) Urine RBC (Auto) Ur Squamous Epith Cells Urine Bacteria Urine Glucose Fluid Source Fluid Volume Fluid Color Fluid Appearance Fluid WBC Fluid RBC Fluid Tot Cell Count CSF Cell Count Tube # CSF Glucose CSF Total Protein 06/09/19 06/09/19 06/09/19 14:18 17:25 17:25 WBC RBC Hgb Hct MCV MCH MCHC RDW Plt Count MPV Neut % (Auto) Lymph % (Auto) Potter % (Auto) Eos % (Auto) Baso % (Auto) Absolute Neuts (auto) Absolute Lymphs (auto) Absolute Monos (auto) Absolute Eos (auto) Absolute Basos (auto) Absolute Nucleated RBC Neutrophils % Lymphocytes % Monocytes % Nucleated RBC % Normal RBC Morphology Microcytosis Macrocytosis INR (Anticoag Therapy) APTT Sodium Potassium Chloride Carbon Dioxide Anion Gap BUN Creatinine Est GFR ( Amer) Est GFR (Non-Af Amer) BUN/Creatinine Ratio Glucose Lactic Acid 0.6 Calcium Total Bilirubin AST ALT Alkaline Phosphatase Troponin I C-Reactive Protein Total Protein Albumin Globulin Albumin/Globulin Ratio Beta HCG, Quant Urine Color Urine Appearance Urine pH Ur Specific [place] Urine Protein Urine Ketones Urine Blood Urine Nitrate Urine Bilirubin Urine Urobilinogen Ur Leukocyte Esterase Urine WBC (Auto) Urine RBC (Auto) Ur Squamous Epith Cells Urine Bacteria Urine Glucose Fluid Source Cerebral spinal Fluid Volume 2 Fluid Color Colorless Fluid Appearance Clear Fluid WBC 0 Fluid RBC 1 Fluid Tot Cell Count CSF Cell Count Tube # 4 CSF Glucose 66 CSF Total Protein 06/09/19 06/09/19 06/10/19 17:30 18:07 06:04 WBC 0.8 L RBC 4.09 Hgb 12.6 Hct 36 MCV 89 MCH 31 MCHC 35 RDW 13 Plt Count 201 MPV 8.0 Neut % (Auto) 0.5 Lymph % (Auto) 39.4 Potter % (Auto) 58.1 Eos % (Auto) 2.0 Baso % (Auto) 0.0 Absolute Neuts (auto) 0.0 L* Absolute Lymphs (auto) 0.3 L Absolute Monos (auto) 0.5 Absolute Eos (auto) 0.0 Absolute Basos (auto) 0.0 Absolute Nucleated RBC 0.0 Neutrophils % Lymphocytes % Monocytes % Nucleated RBC % 0.2 Normal RBC Morphology Microcytosis Macrocytosis INR (Anticoag Therapy) APTT Sodium Potassium Chloride Carbon Dioxide Anion Gap BUN Creatinine Est GFR ( Amer) Est GFR (Non-Af Amer) BUN/Creatinine Ratio Glucose Lactic Acid 0.5 Calcium Total Bilirubin AST ALT Alkaline Phosphatase Troponin I C-Reactive Protein Total Protein Albumin Globulin Albumin/Globulin Ratio Beta HCG, Quant Urine Color Yellow Urine Appearance Clear Urine pH 6.0 Ur Specific [place] 1.026 Urine Protein Negative Urine Ketones Negative Urine Blood 1+ A Urine Nitrate Negative Urine Bilirubin Negative Urine Urobilinogen Negative Ur Leukocyte Esterase Negative Urine WBC (Auto) Trace(0-5/hpf) Urine RBC (Auto) Trace(0-2/hpf) Ur Squamous Epith Cells Present A Urine Bacteria 1+ A Urine Glucose Negative Fluid Source Fluid Volume Fluid Color Fluid Appearance Fluid WBC Fluid RBC Fluid Tot Cell Count CSF Cell Count Tube # CSF Glucose CSF Total Protein 06/10/19 06/10/19 06:04 06:04 WBC RBC Hgb Hct MCV MCH MCHC RDW Plt Count MPV Neut % (Auto) Lymph % (Auto) Potter % (Auto) Eos % (Auto) Baso % (Auto) Absolute Neuts (auto) Absolute Lymphs (auto) Absolute Monos (auto) Absolute Eos (auto) Absolute Basos (auto) Absolute Nucleated RBC Neutrophils % Lymphocytes % Monocytes % Nucleated RBC % Normal RBC Morphology Microcytosis Macrocytosis INR (Anticoag Therapy) 1.20 H APTT Sodium 138 Potassium 3.5 Chloride 106 Carbon Dioxide 27 Anion Gap 5 BUN 9 Creatinine 0.63 Est GFR ( Amer) 131.7 Est GFR (Non-Af Amer) 108.8 BUN/Creatinine Ratio 14.3 Glucose 97 Lactic Acid Calcium 8.5 L Total Bilirubin AST ALT Alkaline Phosphatase Troponin I C-Reactive Protein Total Protein Albumin Globulin Albumin/Globulin Ratio Beta HCG, Quant Urine Color Urine Appearance Urine pH Ur Specific [place] Urine Protein Urine Ketones Urine Blood Urine Nitrate Urine Bilirubin Urine Urobilinogen Ur Leukocyte Esterase Urine WBC (Auto) Urine RBC (Auto) Ur Squamous Epith Cells Urine Bacteria Urine Glucose Fluid Source Fluid Volume Fluid Color Fluid Appearance Fluid WBC Fluid RBC Fluid Tot Cell Count CSF Cell Count Tube # CSF Glucose CSF Total Protein Acetaminophen (Tylenol Tab*) 650 mg PO Q4H PRN PRN Reason: PAIN - MILD Last Admin: 06/10/19 07:50 Dose: 650 mg Sodium Chloride (Ns 0.9% 1000 Ml) 1,000 mls @ 125 mls/hr IV PER RATE JANINA Last Admin: 06/10/19 02:21 Dose: 125 mls/hr Cefepime HCl 2 gm/ Sodium (Chloride) 50 mls @ 100 mls/hr IVPB Q8H JANINA Last Admin: 06/10/19 01:23 Dose: 100 mls/hr Multi-Ingredient Mouthwash/Gargle (Magic Mouth Was-Xander/Maal/Lido*) 5 ml SWISH SWAL QID JANINA Ondansetron HCl (Zofran Inj*) 4 mg IV Q6H PRN PRN Reason: NAUSEA Assessment: 34 yo F w PMH of 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 I suspect that the mouth tenderness is actually just mucositis from profound neutropenia, but this does suggest that she has been neutropenic for longer than a couple of days. reassuringly her Hb and platelets are normal, making relapse high grade lymphoma less likely. I suspect that this might be a viral infection or tick borne illness, though clearly need to cover for neutropenic fever with cefepime as you are doing. If ANC not improving tomorrow we will likely perform a bone marrow biopsy, which she understands the rationale for. I also completely agree with ID consultation. I have taken the liberty of adding magic mouthwash for her mucositis. we will continue to follow very closely with you. additionally I will review her peripheral smear.
[2019-06-10] MEDS: Magic Mouth Was-BEN/MAAL/LIDO SWISH SWAL SCH ×4 (09:44→22:08)
[2019-06-10 18:20] LABS: Influenza A Molecular NEGATIVE (Negative); Influenza B Molecular NEGATIVE (Negative)
[2019-06-11] MEDS: NS 0.9% 1000 ML** 1,000 ML IV SCH ×2 (00:32→13:12)
[2019-06-11] MEDS: Cefepime(*) 2 GM in NS 0.9% 50 ML* 50 ML IVPB SCH ×2 (01:22→09:46)
[2019-06-11] MEDS: Magic Mouth Was-BEN/MAAL/LIDO SWISH SWAL SCH ×4 (09:32→23:27)
[2019-06-11 09:40] LABS: Hematocrit 35 % (35-47); Hemoglobin 12.1 g/dL (12.0-16.0); Mean Corpuscular HGB Conc 34 g/dL (31-36); Mean Corpuscular Hemoglobin 31 pg (27-31); Mean Corpuscular Volume 90 fL (80-97); Mean Platelet Volume 7.9 fL (7.4-10.4); Platelet Count 232 10^3/uL (150-450); Red Blood Count 3.92 10^6 /uL (3.70-4.87); Red Cell Distribution Width 12 % (10-15); White Blood Count 1.1 10^3/uL (3.5-10.8)
[2019-06-11 09:56] LABS: Albumin 3.6 g/dL (3.2-5.2); Albumin/Globulin Ratio 1.4 (1-3); BUN/Creatinine Ratio 12.5 (8-20); Calcium 8.4 mg/dL (8.6-10.3); EGFR African American 150.9 (>60); EGFR Non-African American 124.7 (>60); Globulin 2.5 g/dL (2-4); Potassium 3.7 mmol/L (3.5-5.0); Total Bilirubin 0.8 mg/dL (0.2-1.0); Total Protein 6.1 g/dL (6.4-8.9)
[2019-06-11] MEDS: Acetaminophen TAB* 325 MG PO PRN ×2 (09:57→23:26)
--- NOTE | 2019-06-11 10:05 | PN ---
Progress Note - Progress Note Date of Service: 06/11/19 SOAP: Subjective: feels worse today than yesterday. more headaches and just "yucky". no diarrhea , no rash. mouth looks better today and is less tender. Objective: Vital Signs Temp Pulse Resp BP Pulse Ox 100.0 F 96 20 109/54 99 06/11/19 07:15 06/11/19 07:15 06/11/19 07:15 06/11/19 07:15 06/11/19 07:15 perr eomi erythematous gums, less mucositis CTA bl s1 s2 nl soft nt +bs +bilateral axillary adenopathy no le edema A+O x 3, nonfocal neurological exam Laboratory Results - last 24 hr 06/10/19 06/11/19 06/11/19 17:35 09:16 09:16 WBC 1.1 L RBC 3.92 Hgb 12.1 Hct 35 MCV 90 MCH 31 MCHC 34 RDW 12 Plt Count 232 MPV 7.9 Sodium 138 Potassium 3.7 Chloride 106 Carbon Dioxide 27 Anion Gap 5 BUN 7 Creatinine 0.56 Est GFR ( Amer) 150.9 Est GFR (Non-Af Amer) 124.7 BUN/Creatinine Ratio 12.5 Glucose 101 H Calcium 8.4 L Total Bilirubin 0.80 AST 8 L ALT 6 L Alkaline Phosphatase 39 Total Protein 6.1 L Albumin 3.6 Globulin 2.5 Albumin/Globulin Ratio 1.4 Influenza A (Rapid) Negative Influenza B (Rapid) Negative smear: monocytosis, no obvious lymphoma cell, nl rbc and plts Acetaminophen (Tylenol Tab*) 650 mg PO Q4H PRN PRN Reason: PAIN - MILD Last Admin: 06/11/19 09:57 Dose: 650 mg Sodium Chloride (Ns 0.9% 1000 Ml) 1,000 mls @ 125 mls/hr IV PER RATE [facility] Last Admin: 06/11/19 00:32 Dose: 125 mls/hr Cefepime HCl 2 gm/ Sodium (Chloride) 50 mls @ 100 mls/hr IVPB Q8H [facility] Last Admin: 06/11/19 09:46 Dose: 100 mls/hr Multi-Ingredient Mouthwash/Gargle (Magic Mouth Was-Xander/Maal/Lido*) 5 ml SWISH SWAL QID [facility] Last Admin: 06/11/19 09:32 Dose: 5 ml Ondansetron HCl (Zofran Inj*) 4 mg IV Q6H PRN PRN Reason: NAUSEA Assessment: 34 yo F w PMH of 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 Plan: -ID consultation pending (discussed with Dr. Rincon) -cont cefepime -will hold off on BmBx at this point as no evidence of lymphoma progression, will send peripheral flow -magic mouthwash mucositis full code
[2019-06-11 10:28] LABS: ABS Lymphocytes 0.6 10^3/ul (1.0-4.8); ABS Monocytes 0.6 10^3/ul (0-0.8); Eosinophil % 1.7 %; Lymphocyte % 48.5 %
--- NOTE | 2019-06-11 13:29 | CONS ---
INFECTIOUS DISEASE CONSULTATION DATE OF CONSULTATION: 06/11/2019. REQUESTING PHYSICIAN: Dr. Marti. CONSULTING SERVICE: Infectious Disease. REASON FOR CONSULTATION: Neutropenic fever. IMPRESSION: 1. A few days of mucositis and pharyngitis, ANC of 0, absolute lymphocyte count of 600 with normal hemoglobin and platelets, ongoing fever. Taken together she has neutropenic fever. She did have R-CHOP therapy as recently as January 2019 for lymphoma. Her current illness could be due to a viral infection made more severe by recent Rituxan therapy. She has not had cortical steroids recently. Enteroviruses are a consideration this time of year as is cytomegalovirus with a Rituxan treatment. 2. History of follicular lymphoma treated with R-CHOP completed in January of 2019. 3. ALLERGIES TO PENICILLIN AND AZITHROMYCIN. RECOMMENDATIONS: Continue Cefepime 2 gm IV every 8 hours which she is tolerating well, Tylenol as needed. Will add a CMV PCR and a tick PCR panel. HISTORY OF PRESENT ILLNESS: This is a 34-year-old woman with a history of follicular lymphoma who completed treatment in January 2019 and has done well since. The middle of last week she started developing soreness in her mouth and gums and pain in her throat. She was seen in the Urgent Care and then came to the ER and had a CT of her neck. It did not show abscess or enlarged lymph nodes. Because of her neutropenia and fever, she was admitted and started on IV antibiotics and given Magic Mouthwash. She thinks her mouth pain and swelling has improved. She has had a headache and a stiff neck throughout this episode which is not worse with standing. The headache improves after lying back down. Her white count today is 1.1 and ANC of 0 still, has a lymphocyte count of 600. Her blood cultures here are negative. Because of her headache, she had a lumbar puncture. White count and a fluid of 0, glucose 60, protein 28. A urinalysis shows blood. Influenza PCR was negative. CRP 130. She does have a lot of outdoor expose time in the [place] and [place]. She does have three dogs. 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 Her daughter is 2 and has not been ill. PAST MEDICAL HISTORY: 1. High grade follicular lymphoma treated and completed treatment in January 2019. 2. Status post gastric bypass. 3. Status post laparoscopy cholecystectomy. 4. History of PowerPort placement. MEDICATIONS: 1. Tylenol. 2. Cefepime 2 gm every 8 hours. 3. Magic Mouthwash. 4. Zofran as needed. ALLERGIES: AZITHROMYCIN, PENICILLIN. FAMILY HISTORY: Mother had diabetes. Father's history is unknown. SOCIAL HISTORY: She lives outside of [place] with her and daughter. 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 She is a nonsmoker. REVIEW OF SYSTEMS: All negative except as noted above to 14 point review of systems. PHYSICAL EXAM: General: She is awake and not in distress. Vital Signs: Temperature 37.8, heart rate 90, respiratory rate 20, blood pressure 109/54, oxygen saturation 99 percent on room air. Neurologic: She is oriented times three, follows all commands. Sensation is intact to light touch in both feet. HEENT: There is no conjunctival hemorrhage. Oropharynx: There is mild pallor of the buccal mucosa. There is no plaque on the tongue or oropharynx. There are scattered white plaques on her gums. No ulcers. Neck: Supple without mass. There is slight tenderness anteriorly. Lymph nodes: There is no cervical , supraclavicular, inguinal, axillary, or epitrochlear lymphadenopathy. Heart: Regular rate and rhythm without murmurs, rubs, or gallops. Lungs: Clear to auscultation bilaterally. Abdomen: Soft, nontender, nondistended. There are bowel sounds present. Skin: There is no rash or splinter hemorrhage. Musculoskeletal: There is no spine tenderness to palpation or joint synovitis. LABORATORY DATA: White blood cell count 1.1, hemoglobin 12, platelet 232, creatinine 0.5, ALT 6. Please see impressions and recommendations outlined above. Thank you for asking me to see Ms. Quinones in consultation. [id number]/[facility] #: [id number] [facility] CENTERElysia
[2019-06-11] MEDS: Cefepime 2 GM in Dextrose(*) 2 GM/50 ML BAG IV SCH (18:17)
[2019-06-12] MEDS: NS 0.9% 1000 ML** 1,000 ML IV SCH (00:29)
[2019-06-12] MEDS: Cefepime 2 GM in Dextrose(*) 2 GM/50 ML BAG IV SCH ×3 (02:29→18:02)
[2019-06-12 05:57] LABS: Hematocrit 27 % (35-47); Hemoglobin 9.4 g/dL (12.0-16.0); Mean Corpuscular HGB Conc 35 g/dL (31-36); Mean Corpuscular Hemoglobin 31 pg (27-31); Mean Corpuscular Volume 89 fL (80-97); Mean Platelet Volume 7.8 fL (7.4-10.4); Platelet Count 186 10^3/uL (150-450); Red Blood Count 3.05 10^6 /uL (3.70-4.87); Red Cell Distribution Width 13 % (10-15); White Blood Count 1.6 10^3/uL (3.5-10.8)
[2019-06-12 06:07] LABS: Albumin 2.6 g/dL (3.2-5.2); Albumin/Globulin Ratio 1.5 (1-3); BUN/Creatinine Ratio 14.3 (8-20); EGFR African American 210.3 (>60); EGFR Non-African American 173.8 (>60); Globulin 1.7 g/dL (2-4); Potassium 2.9 mmol/L (3.5-5.0); Total Bilirubin 0.5 mg/dL (0.2-1.0); Total Protein 4.3 g/dL (6.4-8.9)
[2019-06-12 06:14] LABS: Calcium 6.4 mg/dL (8.6-10.3)
[2019-06-12 06:38] LABS: ABS Lymphocytes 0.9 10^3/ul (1.0-4.8); ABS Monocytes 0.7 10^3/ul (0-0.8); Eosinophil % 1.8 %; Lymphocyte % 55.9 %; Nucleated Red Blood Cells % 0.3
[2019-06-12 08:51] LABS: Albumin 3.6 g/dL (3.2-5.2); Albumin/Globulin Ratio 1.4 (1-3); BUN/Creatinine Ratio 14.9 (8-20); Calcium 8.5 mg/dL (8.6-10.3); EGFR African American 184.7 (>60); EGFR Non-African American 152.6 (>60); Globulin 2.5 g/dL (2-4); Potassium 3.8 mmol/L (3.5-5.0); Total Bilirubin 0.7 mg/dL (0.2-1.0); Total Protein 6.1 g/dL (6.4-8.9)
[2019-06-12] MEDS: Acetaminophen TAB* 325 MG PO PRN ×2 (09:14→17:05)
[2019-06-12] MEDS: Magic Mouth Was-BEN/MAAL/LIDO SWISH SWAL SCH ×4 (09:16→19:52)
--- NOTE | 2019-06-12 10:36 | PN ---
Progress Note - Progress Note Date of Service: 06/12/19 SOAP: Subjective: [Feels ok today. Tmax 101.6F overnight. No new complaints. IV site in the L arm infiltrated.] Objective: [ Vital Signs: Temp Pulse Resp BP Pulse Ox 99.2 F 84 24 106/61 98 06/12/19 07:15 06/12/19 07:15 06/12/19 07:15 06/12/19 07:15 06/12/19 07:15 Acetaminophen (Tylenol Tab*) 650 mg PO Q4H PRN PRN Reason: PAIN - MILD Last Admin: 06/12/19 09:14 Dose: 650 mg Filgrastim-Sndz (Zarxio*) 480 mcg SUBCUT DAILY [facility] Cefepime HCl (Maxipime 2 Gm In Dextrose Duplex (*)) 2 gm in 50 mls @ 100 mls/ hr IV Q8H [facility] Last Admin: 06/12/19 02:29 Dose: 100 mls/hr Multi-Ingredient Mouthwash/Gargle (Magic Mouth Was-Xander/Maal/Lido*) 5 ml SWISH SWAL QID [facility] Last Admin: 06/12/19 09:16 Dose: 5 ml Ondansetron HCl (Zofran Inj*) 4 mg IV Q6H PRN PRN Reason: NAUSEA Laboratory Results - last 24 hr 06/09/19 06/09/19 06/09/19 14:18 14:18 17:25 WBC RBC Hgb Hct MCV MCH MCHC RDW Plt Count MPV Neut % (Auto) Lymph % (Auto) [place] % (Auto) Eos % (Auto) Baso % (Auto) Absolute Neuts (auto) Absolute Lymphs (auto) Absolute Monos (auto) Absolute Eos (auto) Absolute Basos (auto) Absolute Nucleated RBC Nucleated RBC % Hem Pathologist Commnt Sodium Potassium Chloride Carbon Dioxide Anion Gap BUN Creatinine Est GFR ( Amer) Est GFR (Non-Af Amer) BUN/Creatinine Ratio Glucose Calcium Total Bilirubin AST ALT Alkaline Phosphatase Total Protein Albumin Globulin Albumin/Globulin Ratio Fluid Cell Count Rvw By Lyme Total Antibody Negative 06/11/19 06/12/19 06/12/19 09:16 05:09 05:09 WBC 1.1 L 1.6 L RBC 3.92 3.05 L Hgb 12.1 9.4 L Hct 35 27 L MCV 90 89 MCH 31 31 MCHC 34 35 RDW 12 13 Plt Count 232 186 MPV 7.9 7.8 Neut % (Auto) 0.4 0.3 Lymph % (Auto) 48.5 55.9 Dewitt % (Auto) 49.4 42.0 Eos % (Auto) 1.7 1.8 Baso % (Auto) 0.0 0.0 Absolute Neuts (auto) 0.0 L 0.0 L Absolute Lymphs (auto) 0.6 L 0.9 L Absolute Monos (auto) 0.6 0.7 Absolute Eos (auto) 0.0 0.0 Absolute Basos (auto) 0.0 0.0 Absolute Nucleated RBC 0.0 0.0 Nucleated RBC % 0.0 0.3 Hem Pathologist Commnt Sodium 143 Potassium 2.9 L Chloride 117 H Carbon Dioxide 22 Anion Gap 4 BUN 6 Creatinine 0.42 L Est GFR ( Amer) 210.3 Est GFR (Non-Af Amer) 173.8 BUN/Creatinine Ratio 14.3 Glucose 77 Calcium 6.4 L* Total Bilirubin 0.50 AST 6 L ALT 5 L Alkaline Phosphatase 28 L Total Protein 4.3 L Albumin 2.6 L Globulin 1.7 L Albumin/Globulin Ratio 1.5 Fluid Cell Count Rvw By Lyme Total Antibody 06/12/19 08:18 WBC RBC Hgb Hct MCV MCH MCHC RDW Plt Count MPV Neut % (Auto) Lymph % (Auto) [place] % (Auto) Eos % (Auto) Baso % (Auto) Absolute Neuts (auto) Absolute Lymphs (auto) Absolute Monos (auto) Absolute Eos (auto) Absolute Basos (auto) Absolute Nucleated RBC Nucleated RBC % Hem Pathologist Commnt Sodium 138 Potassium 3.8 Chloride 107 Carbon Dioxide 25 Anion Gap 6 BUN 7 Creatinine 0.47 L Est GFR ( Amer) 184.7 Est GFR (Non-Af Amer) 152.6 BUN/Creatinine Ratio 14.9 Glucose 94 Calcium 8.5 L Total Bilirubin 0.70 AST 8 L ALT 8 Alkaline Phosphatase 40 Total Protein 6.1 L Albumin 3.6 Globulin 2.5 Albumin/Globulin Ratio 1.4 Fluid Cell Count Rvw By Lyme Total Antibody Exam: Gen: Well appearing 34 yo female in NAD HEENT: MMM CV: RRR, II/ murmur appreciated Resp: CTA, no w/c/r Abd: soft nonTTP Ext: no edema Skin: induration and erythema over prior IV site on the L arm] Assessment: 34 yo F w PMH of 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 She presented with 2 days of fevers, mouth tenderness and neck stiffness and found to have profound neutropenia. Blood cultures negative. CSF appears benign. New murmur appreciated on today's exam. Etiology of neutropenia is not clear. May be a viral etiology v late onset neutropenia secondary to rituximab. Plan: 1. Neutropenic fever - cont cefepime - start GCSF - consider BMBx if she does not respond to GCSF - awaiting viral serologies - ID consult appreciated 2. Heart murmur - new murmur appreciated on exam today - unlikely to represent endocarditis given negative blood cultures - check TTE Dispo: cont inpatient care until neutropenia improves and is afebrile for at least 24h
[2019-06-12 13:16] LABS: EBV Capsid Ag IgG Ab Positive (Negative); EBV Capsid Ag IgM Ab Negative (Negative); Epstein-Barr Nuclear Antigen Positive (Negative)
[2019-06-12] MEDS: FILGRASTIM-SNDZ* 480 MCG/0.8 ML SYRINGE SUBCUT SCH (14:50)
--- NOTE | 2019-06-12 15:51 | ECHO ---
*[facility]* [place] [address] Fax #: [phone] Transthoracic Echocardiogram Patient: Leesa Quinones : 1985 Study Date: 06/12/2019 Age: 34 Gender: F HR: 85 bpm Height: 68 in /172.7 cm BSA: 1.94 m^2 Weight: 175.6 lb /79.8 kg BMI: 26.8 kg/m^2 *Office Messenger: * Natalya Padron RDCS RN *Referring Physician: * Shaw Strickland *Reading Physician: * Omar Monge MD Indications: Murmur. History: Follicular lymphoma. Chemotherapy. Gastric bypass. Conclusions Summary: - Left ventricle: Systolic function is normal. The estimated ejection fraction is 55-60%. Wall motion is normal; there are no regional wall motion abnormalities. - Right ventricle: Systolic function is normal. - Mitral valve: There is trace to mild regurgitation. - Aortic valve: There is no evidence of a vegetation. There is no regurgitation. - Tricuspid valve: There is trace to mild regurgitation. - Pulmonic valve: There is trace regurgitation. - Pericardium, extracardiac: There is no pericardial effusion. - Pulmonary arteries: Systolic pressure can not be accurately estimated. - Compared to study of 09/20/18, there is little change. Study data: Transthoracic echocardiogram. Procedure: Transthoracic echocardiography was performed. Image quality was fair. The study was technically limited due to body habitus. Complete 2D, spectral Doppler, and color flow Doppler. Location: Bedside. Patient status: Inpatient. Patient room number: 401. Rhythm: Normal sinus rhythm. Findings Left ventricle: The cavity size is normal. Wall thickness is normal. Systolic function is normal. The estimated ejection fraction is 55-60%. Wall motion is normal; there are no regional wall motion abnormalities. Left ventricular diastolic function parameters are normal. Right ventricle: The cavity size is normal. Systolic function is normal. Left atrium: The atrium is normal in size. Right atrium: The atrium is normal in size. Mitral valve: The leaflets are mildly thickened. There is no evidence of a vegetation. There is no evidence of stenosis. There is trace to mild regurgitation. Aortic valve: The valve is trileaflet. The leaflets are mildly thickened. There is no evidence of a vegetation. There is no evidence of stenosis. There is no regurgitation. Tricuspid valve: The valve is structurally normal. There is no evidence of a vegetation. There is no evidence of stenosis. There is trace to mild regurgitation. Pulmonic valve: The valve is structurally normal. There is no evidence of a vegetation. There is no evidence of stenosis. There is trace regurgitation. Aorta: Aortic root: The aortic root is appears normal. Ascending aorta: The ascending aorta is not dilated. Aortic arch: The aortic arch is not dilated. Pericardium: There is no pericardial effusion. Pulmonary arteries: The main pulmonary artery is normal-sized. Systolic pressure can not be accurately estimated. Systemic veins: Inferior vena cava: The vessel is normal in size. There is (>= 50%) respiratory change in the IVC dimension. Measurements Left ventricle Value Ref Aortic valve Value Ref KIARA, LAX 4.6 cm 3.8 - 5.2 Jamey diam, ED 2.0 cm ---- ESD, LAX 3.2 cm 2.2 - 3.5 Peak v, S 1.29 m/sec ---- FS, LAX 31 % 27 - 45 VTI, S 29.2 cm ---- PW, ED 0.9 cm 0.6 - 0.9 Mean grad, S 4.0 mm Hg ---- IVS/PW, ED 0.95 Peak grad, S 7.0 mm Hg ---- E', lat jamey, TDI 14.6 cm/sec >=10.0 LVOT/AV, VTI ratio 0.73 -- -- E/e', lat jamey, 8 TDI Mitral valve Value Ref E', med jamey, TDI 12.6 cm/sec >=7.0 Peak E 1.18 m/sec -- -- E/e', med jamey, 9 Peak A 0.64 m/sec ---- TDI Decel time 194 ms ---- E', avg, TDI 13.6 cm/sec Peak grad, D 5.6 mm Hg ---- E/e', avg, TDI 9 <=14 Peak E/A ratio 1.9 -- -- LVOT Value Ref Pulmonic valve Value Ref Peak maría, S 1.01 m/sec Peak v, S 0.89 m/sec ---- VTI, S 21.2 cm Peak grad, S 3.0 mm Hg ---- Mean grad, S 3 mm Hg Aortic root Value Ref Ventricular septum Value Ref Root diam 2.6 cm <3.6 IVS, ED 0.9 cm 0.6 - 0.9 Ascending aorta Value Ref Right ventricle Value Ref AAo AP diam, S 2.3 cm ---- KIARA, LAX 2.9 cm KIARA minor ax, A4C 2.9 cm 1.9 - 3.5 Aortic arch Value Ref mid Arch diam 2.0 cm ---- Left atrium Value Ref Decending aorta Value Ref AP dim, ES 3.30 cm 2.70 - Maximiliano peak maría 1.54 m/sec ---- 3.80 ML dim, A4C 4.8 cm Inferior vena cava Value Ref SI dim, A4C 4.7 cm Diam 1.7 cm ---- Vol/bsa, ES, 1-p 28 ml/m^2 11 - 40 A4C Vol/bsa, ES, A/L 28 ml/m^2 16 - 34 Right atrium Value Ref ML dim, ES, A4C 3.2 cm 2.6 - 4.4 SI dim, ES, A4C 4.6 cm 3.4 - 5.3 Estimated RAP 3 mm Hg Legend: (L) and (H) randi values outside specified reference range. Prepared and electronically signed by Omar Monge MD 06/12/2019 15:50
--- NOTE | 2019-06-12 16:00 | PN ---
Progress Note - Progress Note Date of Service: 06/12/19 SOAP: Subjective: CC: fever HPI: 34 year old woman with neutropenia, fever, mucositis a few months after finishing R CHOP for lymphoma. Fever this morning, no cough, diarrhea, rash. Mouth less painful but gums are a little worse. Pain left upper arm at prior IV site. Objective: Vital Signs Temp 37.3 C 06/12/19 07:15 Pulse 84 06/12/19 07:15 Resp 24 06/12/19 07:15 BP 106/61 06/12/19 07:15 Pulse Ox 98 06/12/19 07:15 Intake & Output 06/11/19 06/12/19 06/12/19 18:59 06:59 18:59 Intake Total 2634 1707 1080 Output Total 1880 1900 3300 Balance 754 -193 -2220 Intake: IV Fluids 898 1707 NS (0.9%) 898 1657 cefepime 50 IVPB 56 cefepime 56 Oral 1680 0 1080 Output: Urine 188 1900 3300 Other: Date of Last Bowel [id number] Movement # Bowel Movements 1 1 Estimated Stool Amount Medium # Voids 5 6 Gen:awake, no distress Neuro: Ox3, moves all extremities HEENT: no thrush; diffuse gum edema and erythema Neck:supple LN: no palpable lymph nodes Heart:Regular rate and rhythm Lungs:CTA BL Abd:+BS NTND soft Skin: no rash, left upper arm warmth , edema, and chord Laboratory Results - last 24 hr 06/09/19 06/12/19 06/12/19 14:18 05:09 05:09 WBC 1.6 L RBC 3.05 L Hgb 9.4 L Hct 27 L MCV 89 MCH 31 MCHC 35 RDW 13 Plt Count 186 MPV 7.8 Neut % (Auto) 0.3 Lymph % (Auto) 55.9 [place] % (Auto) 42.0 Eos % (Auto) 1.8 Baso % (Auto) 0.0 Absolute Neuts (auto) 0.0 L Absolute Lymphs (auto) 0.9 L Absolute Monos (auto) 0.7 Absolute Eos (auto) 0.0 Absolute Basos (auto) 0.0 Absolute Nucleated RBC 0.0 Nucleated RBC % 0.3 Sodium 143 Potassium 2.9 L Chloride 117 H Carbon Dioxide 22 Anion Gap 4 BUN 6 Creatinine 0.42 L Est GFR ( Amer) 210.3 Est GFR (Non-Af Amer) 173.8 BUN/Creatinine Ratio 14.3 Glucose 77 Calcium 6.4 L* Total Bilirubin 0.50 AST 6 L ALT 5 L Alkaline Phosphatase 28 L Total Protein 4.3 L Albumin 2.6 L Globulin 1.7 L Albumin/Globulin Ratio 1.5 EBV Capsid Ag IgG Ab Positive EBV Capsid Ag IgM Ab Negative EBV Nuclear Antigen Positive EBV Interpretation See comment 06/12/19 08:18 WBC RBC Hgb Hct MCV MCH MCHC RDW Plt Count MPV Neut % (Auto) Lymph % (Auto) [place] % (Auto) Eos % (Auto) Baso % (Auto) Absolute Neuts (auto) Absolute Lymphs (auto) Absolute Monos (auto) Absolute Eos (auto) Absolute Basos (auto) Absolute Nucleated RBC Nucleated RBC % Sodium 138 Potassium 3.8 Chloride 107 Carbon Dioxide 25 Anion Gap 6 BUN 7 Creatinine 0.47 L Est GFR ( Amer) 184.7 Est GFR (Non-Af Amer) 152.6 BUN/Creatinine Ratio 14.9 Glucose 94 Calcium 8.5 L Total Bilirubin 0.70 AST 8 L ALT 8 Alkaline Phosphatase 40 Total Protein 6.1 L Albumin 3.6 Globulin 2.5 Albumin/Globulin Ratio 1.4 EBV Capsid Ag IgG Ab EBV Capsid Ag IgM Ab EBV Nuclear Antigen EBV Interpretation Assessment: 1. neutropenic fever ?viral vs chemo effect; overall feeling better 2. mucositis 3. Left arm phlebitis 4. Hx lymphoma Plan: 1. continue cefepime 2 gm IV Q8hrs 2. warm compress left arm
[2019-06-12 17:00] LABS: HSV 1 PCR, CSF Negative (Negative); HSV 2 PCR, CSF Negative (Negative)
[2019-06-12 21:18] LABS: Anaplasma phagocytophilum Negative (Negative); B. miyamotoi PCR, B Negative (Negative); Babesia divergens/MO-1 Negative (Negative); Babesia ducani Negative (Negative); Ehrlichia chaffeensis Negative (Negative); Ehrlichia ewingii/canis Negative (Negative); Ehrlichia muris eauclairensis Negative (Negative)
[2019-06-12 21:19] LABS: B garinii/B afzelii PCR Negative (Negative); B mayonii PCR Negative (Negative)
[2019-06-12 23:19] LABS: CSF West Nile Virus RNA (PCR) Negative (Negative); West Nile Virus Source CSF
[2019-06-13] MEDS: Cefepime 2 GM in Dextrose(*) 2 GM/50 ML BAG IV SCH ×3 (01:57→18:15)
[2019-06-13] MEDS: Acetaminophen TAB* 325 MG PO PRN ×3 (03:00→19:43)
[2019-06-13 08:58] LABS: Hematocrit 37 % (35-47); Hemoglobin 12.8 g/dL (12.0-16.0); Mean Corpuscular HGB Conc 35 g/dL (31-36); Mean Corpuscular Hemoglobin 30 pg (27-31); Mean Corpuscular Volume 88 fL (80-97); Mean Platelet Volume 7.7 fL (7.4-10.4); Platelet Count 286 10^3/uL (150-450); Red Blood Count 4.21 10^6 /uL (3.70-4.87); Red Cell Distribution Width 13 % (10-15); White Blood Count 1.6 10^3/uL (3.5-10.8)
[2019-06-13 09:18] LABS: Albumin 3.8 g/dL (3.2-5.2); Albumin/Globulin Ratio 1.4 (1-3); BUN/Creatinine Ratio 13.2 (8-20); Calcium 9.1 mg/dL (8.6-10.3); EGFR African American 160.8 (>60); EGFR Non-African American 132.9 (>60); Globulin 2.7 g/dL (2-4); Potassium 3.8 mmol/L (3.5-5.0); Total Bilirubin 0.9 mg/dL (0.2-1.0); Total Protein 6.5 g/dL (6.4-8.9)
[2019-06-13 09:27] LABS: ABS Lymphocytes 0.6 10^3/ul (1.0-4.8); ABS Monocytes 0.9 10^3/ul (0-0.8); Eosinophil % 1.6 %; Lymphocyte % 36.5 %
[2019-06-13] MEDS: Magic Mouth Was-BEN/MAAL/LIDO SWISH SWAL SCH ×4 (09:59→20:46)
[2019-06-13] MEDS: FILGRASTIM-SNDZ* 480 MCG/0.8 ML SYRINGE SUBCUT SCH (10:01)
[2019-06-13] MEDS ORDERED: Lorazepam PYXIS KEY PRN (10:14)
--- NOTE | 2019-06-13 10:35 | PN ---
Progress Note - Progress Note Date of Service: 06/13/19 SOAP: Subjective: [Feels good. Gum swelling/tenderness improved today. Afebrile overnight.] Objective: [ Vital Signs: Temp Pulse Resp BP Pulse Ox 98.7 F 97 16 115/64 100 06/13/19 08:15 06/13/19 08:15 06/13/19 10:02 06/13/19 08:15 06/13/19 10:02 Acetaminophen (Tylenol Tab*) 650 mg PO Q4H PRN PRN Reason: PAIN - MILD Last Admin: 06/13/19 09:59 Dose: 650 mg Filgrastim-Sndz (Zarxio*) 480 mcg SUBCUT DAILY [facility] Last Admin: 06/12/19 14:50 Dose: 480 mcg Cefepime HCl (Maxipime 2 Gm In Dextrose Duplex (*)) 2 gm in 50 mls @ 100 mls/ hr IV Q8H [facility] Last Admin: 06/13/19 09:59 Dose: 100 mls/hr Lidocaine HCl (Lidocaine 2% Pf * 5 Ml Vial) 0 ml .SEE ORDER ONCE ONE Stop: 06/13/19 11:01 Lorazepam (Ativan Inj*) 0.5 mg IV PUSH ONCE ONE Stop: 06/13/19 10:46 Miscellaneous (Ativan Pyxis Song) 1 ea N/A .ATIVAN IV SONG PRN PRN Reason: PYXIS SONG Morphine Sulfate (Morphine Inj (Syringe))*) 2 mg IV ONCE ONE Stop: 06/13/19 10:46 Multi-Ingredient Mouthwash/Gargle (Magic Mouth Was-Xander/Maal/Lido*) 5 ml SWISH SWAL QID [facility] Last Admin: 06/13/19 09:59 Dose: 5 ml Ondansetron HCl (Zofran Inj*) 4 mg IV Q6H PRN PRN Reason: NAUSEA Laboratory Results - last 24 hr 06/09/19 06/09/19 06/09/19 14:18 17:25 17:25 WBC RBC Hgb Hct MCV MCH MCHC RDW Plt Count MPV Neut % (Auto) Lymph % (Auto) [place] % (Auto) Eos % (Auto) Baso % (Auto) Absolute Neuts (auto) Absolute Lymphs (auto) Absolute Monos (auto) Absolute Eos (auto) Absolute Basos (auto) Absolute Nucleated RBC Neutrophils % Lymphocytes % Monocytes % Eosinophils % Nucleated RBC % Normal RBC Morphology Sodium Potassium Chloride Carbon Dioxide Anion Gap BUN Creatinine Est GFR ( Amer) Est GFR (Non-Af Amer) BUN/Creatinine Ratio Glucose Calcium Total Bilirubin AST ALT Alkaline Phosphatase Total Protein Albumin Globulin Albumin/Globulin Ratio CSF Cryptococcus Ag Negative CSF HSV I (PCR) Negative CSF Herpes II DNA (PCR) Negative CSF West Nile RNA Negative Anaplasma DNA (PCR) Negative B. divergens/MO-1 PCR Negative Babesia duncani DNA PCR Negative Babesia microti DNA PCR Negative B. burgdorferi (PCR) Lyme DNA Comment B.garinii/afzelii PCR B. mayonii (PCR) Borrelia miyamotoi (PCR) Negative CMV Qnt PCR IU/mL E.chaffeensis DNA (PCR) Negative E. ewingii/canis (PCR) Negative E. muris-like DNA (PCR) Negative West Nile Virus Source Csf EBV Capsid Ag IgG Ab Positive EBV Capsid Ag IgM Ab Negative EBV Nuclear Antigen Positive EBV Interpretation See comment 06/10/19 06/11/19 06/13/19 06:04 09:16 08:47 WBC 1.6 L RBC 4.21 Hgb 12.8 Hct 37 MCV 88 MCH 30 MCHC 35 RDW 13 Plt Count 286 MPV 7.7 Neut % (Auto) 1.4 Lymph % (Auto) 36.5 [place] % (Auto) 59.0 Eos % (Auto) 1.6 Baso % (Auto) 1.5 Absolute Neuts (auto) 0.0 L Absolute Lymphs (auto) 0.6 L Absolute Monos (auto) 0.9 H Absolute Eos (auto) 0.0 Absolute Basos (auto) 0.0 Absolute Nucleated RBC 0.0 Neutrophils % 3.0 Lymphocytes % 52.0 Monocytes % 43.0 Eosinophils % 2.0 Nucleated RBC % 0.0 Normal RBC Morphology Normal Sodium Potassium Chloride Carbon Dioxide Anion Gap BUN Creatinine Est GFR ( Amer) Est GFR (Non-Af Amer) BUN/Creatinine Ratio Glucose Calcium Total Bilirubin AST ALT Alkaline Phosphatase Total Protein Albumin Globulin Albumin/Globulin Ratio CSF Cryptococcus Ag CSF HSV I (PCR) CSF Herpes II DNA (PCR) CSF West Nile RNA Anaplasma DNA (PCR) B. divergens/MO-1 PCR Babesia duncani DNA PCR Babesia microti DNA PCR B. burgdorferi (PCR) Negative Lyme DNA Comment See comment B.garinii/afzelii PCR Negative B. mayonii (PCR) Negative Borrelia miyamotoi (PCR) CMV Qnt PCR IU/mL Undetected E.chaffeensis DNA (PCR) E. ewingii/canis (PCR) E. muris-like DNA (PCR) West Nile Virus Source EBV Capsid Ag IgG Ab EBV Capsid Ag IgM Ab EBV Nuclear Antigen EBV Interpretation 06/13/19 08:47 WBC RBC Hgb Hct MCV MCH MCHC RDW Plt Count MPV Neut % (Auto) Lymph % (Auto) [place] % (Auto) Eos % (Auto) Baso % (Auto) Absolute Neuts (auto) Absolute Lymphs (auto) Absolute Monos (auto) Absolute Eos (auto) Absolute Basos (auto) Absolute Nucleated RBC Neutrophils % Lymphocytes % Monocytes % Eosinophils % Nucleated RBC % Normal RBC Morphology Sodium 139 Potassium 3.8 Chloride 104 Carbon Dioxide 29 Anion Gap 6 BUN 7 Creatinine 0.53 Est GFR ( Amer) 160.8 Est GFR (Non-Af Amer) 132.9 BUN/Creatinine Ratio 13.2 Glucose 91 Calcium 9.1 Total Bilirubin 0.90 AST 7 L ALT 8 Alkaline Phosphatase 46 Total Protein 6.5 Albumin 3.8 Globulin 2.7 Albumin/Globulin Ratio 1.4 CSF Cryptococcus Ag CSF HSV I (PCR) CSF Herpes II DNA (PCR) CSF West Nile RNA Anaplasma DNA (PCR) B. divergens/MO-1 PCR Babesia duncani DNA PCR Babesia microti DNA PCR B. burgdorferi (PCR) Lyme DNA Comment B.garinii/afzelii PCR B. mayonii (PCR) Borrelia miyamotoi (PCR) CMV Qnt PCR IU/mL E.chaffeensis DNA (PCR) E. ewingii/canis (PCR) E. 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 She presented with 2 days of fevers, mouth tenderness and neck stiffness and found to have profound neutropenia. Blood cultures negative. CSF appears benign. New murmur appreciated on today's exam. Etiology of neutropenia is not clear. May be a viral etiology v late onset neutropenia secondary to rituximab. She received Neupogen yesterday and ANC remains 0 today. Plan: 1. Neutropenic fever - cont cefepime - started GCSF 06/12 - given the length of neutropenia will perform BMBx today and send for flow and FISH for MDS - awaiting viral serologies - ID consult appreciated 2. Heart murmur - echo WNL, murmur may have just been due to turbulent flow Dispo: cont inpatient care until neutropenia improves and is afebrile for at least 24h]
[2019-06-13] MEDS ORDERED: Morphine INJ* 2 MG/ML 1 ML SYRINGE (TWO MG - NEW SYRINGE VERSION) IV ONE (10:45)
[2019-06-13] MEDS ORDERED: LORazepam INJ* 2 MG/ML 1 ML VIAL IV PUSH ONE (10:45)
[2019-06-13] MEDS ORDERED: Lidocaine 2% PF * 5 ML VIAL ONE (11:00)
[2019-06-14] MEDS: Cefepime 2 GM in Dextrose(*) 2 GM/50 ML BAG IV SCH ×3 (02:16→18:06)
[2019-06-14 05:26] LABS: Hematocrit 36 % (35-47); Hemoglobin 12.5 g/dL (12.0-16.0); Mean Corpuscular HGB Conc 35 g/dL (31-36); Mean Corpuscular Hemoglobin 30 pg (27-31); Mean Corpuscular Volume 87 fL (80-97); Mean Platelet Volume 8.1 fL (7.4-10.4); Platelet Count 290 10^3/uL (150-450); Red Blood Count 4.11 10^6 /uL (3.70-4.87); Red Cell Distribution Width 13 % (10-15); White Blood Count 2.2 10^3/uL (3.5-10.8)
[2019-06-14 05:38] LABS: Calcium 8.6 mg/dL (8.6-10.3); EGFR African American 171.9 (>60); EGFR Non-African American 142.1 (>60); Potassium 3.7 mmol/L (3.5-5.0)
[2019-06-14 06:24] LABS: ABS Eosinophils 0.1 10^3/ul (0-0.6); ABS Lymphocytes 0.8 10^3/ul (1.0-4.8); ABS Monocytes 1.2 10^3/ul (0-0.8); ABS Neutrophils 0.2 10^3/ul (1.5-7.7); Lymphocyte % 33.9 %; Nucleated Red Blood Cells % 0.5
[2019-06-14] MEDS: FILGRASTIM-SNDZ* 480 MCG/0.8 ML SYRINGE SUBCUT SCH (10:23)
[2019-06-14] MEDS: Magic Mouth Was-BEN/MAAL/LIDO SWISH SWAL SCH ×4 (10:34→20:47)
--- NOTE | 2019-06-14 12:48 | PN ---
Progress Note - Progress Note Date of Service: 06/14/19 SOAP: Subjective: feels better today. low grade fever o/n Objective: Vital Signs Temp Pulse Resp BP Pulse Ox 97.6 F 86 16 108/61 99 06/14/19 07:32 06/14/19 07:32 06/14/19 08:24 06/14/19 07:32 06/14/19 08:22 perr eomi op mild erythema, no mucositis CTA B/L s1 s2 nl soft nt +Bs no le edema no rash mild NIC Laboratory Results - last 24 hr 06/13/19 06/14/19 06/14/19 08:47 04:35 04:35 WBC 2.2 L RBC 4.11 Hgb 12.5 Hct 36 MCV 87 MCH 30 MCHC 35 RDW 13 Plt Count 290 MPV 8.1 Neut % (Auto) 8.1 Lymph % (Auto) 33.9 [place] % (Auto) 53.5 Eos % (Auto) 3.0 Baso % (Auto) 1.5 Absolute Neuts (auto) 0.2 L Absolute Lymphs (auto) 0.8 L Absolute Monos (auto) 1.2 H Absolute Eos (auto) 0.1 Absolute Basos (auto) 0.0 Absolute Nucleated RBC 0.0 Immature Gran % 1.0 Neutrophils % 3.0 Band Neutrophils % 1.0 Lymphocytes % 46.0 Reactive Lymphs % 4.0 D Monocytes % 40.0 Eosinophils % 6.0 Nucleated RBC % 0.5 Platelet Morphology Giant Normal RBC Morphology Normal Hem Pathologist Commnt Sodium 139 Potassium 3.7 Chloride 105 Carbon Dioxide 28 Anion Gap 6 BUN 8 Creatinine 0.50 L Est GFR ( Amer) 171.9 Est GFR (Non-Af Amer) 142.1 BUN/Creatinine Ratio 16.0 Glucose 89 Calcium 8.6 Acetaminophen (Tylenol Tab*) 650 mg PO Q4H PRN PRN Reason: PAIN - MILD Last Admin: 06/13/19 19:43 Dose: 650 mg Filgrastim-Sndz (Zarxio*) 480 mcg SUBCUT DAILY [facility] Last Admin: 06/14/19 10:23 Dose: 480 mcg Cefepime HCl (Maxipime 2 Gm In Dextrose Duplex (*)) 2 gm in 50 mls @ 100 mls/ hr IV Q8H [facility] Last Admin: 06/14/19 10:22 Dose: 100 mls/hr Miscellaneous (Ativan Pyxis Song) 1 ea N/A .ATIVAN IV SONG PRN PRN Reason: PYXIS SONG Multi-Ingredient Mouthwash/Gargle (Magic Mouth Was-Xander/Maal/Lido*) 5 ml SWISH SWAL QID [facility] Last Admin: 06/14/19 10:34 Dose: Not Given Ondansetron HCl (Zofran Inj*) 4 mg IV Q6H PRN PRN Reason: NAUSEA Assessment: 34 yo F w PMH of 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 She presented with 2 days of fevers, mouth tenderness and neck stiffness and found to have profound neutropenia. Blood cultures negative. CSF appears benign. DDx: viral, delayed rituxan, less likely follicular lymphoma Plan: 1. Neutropenic fever - cont cefepime - started GCSF 10/ - fu bone marrow bx - ID consult appreciated 2. broken port: -remove when no longer neutropenic ambulate frequently DVT prophylaxis full code
[2019-06-15] MEDS: Cefepime 2 GM in Dextrose(*) 2 GM/50 ML BAG IV SCH ×2 (02:15→09:12)
[2019-06-15 06:59] LABS: Albumin 3.5 g/dL (3.2-5.2); Albumin/Globulin Ratio 1.4 (1-3); BUN/Creatinine Ratio 18.5 (8-20); Calcium 8.8 mg/dL (8.6-10.3); EGFR African American 157.3 (>60); Globulin 2.5 g/dL (2-4); Potassium 3.8 mmol/L (3.5-5.0); Total Bilirubin 0.6 mg/dL (0.2-1.0)
[2019-06-15 07:04] LABS: Hematocrit 35 % (35-47); Hemoglobin 12.3 g/dL (12.0-16.0); Mean Corpuscular HGB Conc 35 g/dL (31-36); Mean Corpuscular Hemoglobin 30 pg (27-31); Mean Corpuscular Volume 88 fL (80-97); Mean Platelet Volume 8.1 fL (7.4-10.4); Platelet Count 291 10^3/uL (150-450); Red Blood Count 4.04 10^6 /uL (3.70-4.87); Red Cell Distribution Width 13 % (10-15); White Blood Count 4.6 10^3/uL (3.5-10.8)
[2019-06-15 07:55] VITALS: BP 126/64
[2019-06-15] MEDS: FILGRASTIM-SNDZ* 480 MCG/0.8 ML SYRINGE SUBCUT SCH (09:13)
[2019-06-15] MEDS: Magic Mouth Was-BEN/MAAL/LIDO SWISH SWAL SCH (09:15)
--- NOTE | 2019-06-15 11:10 | DS ---
CC: Dr. Santos; Dr. Rincon * DISCHARGE SUMMARY: DATE OF ADMISSION: 06/09/19 DATE OF DISCHARGE: 06/15/19 PRIMARY CARE PROVIDER: Dr. Santos CONSULTING INFECTIOUS DISEASE SPECIALIST: Dr. Rincon PRIMARY BATON TWIRLER/ONCOLOGIST AND ATTENDING PHYSICIAN: Dr. Tara Marti * ( DICTATED BY ERICK PEDERSEN) DISCHARGING PROVIDER: ERICK Pedersen PRIMARY DISCHARGE DIAGNOSES: 1. Neutropenic fever - etiology of neutropenia is still not entirely clear at the time of discharge, but likely viral process versus a delayed onset neutropenia related to rituximab treatment for her history of follicular lymphoma. 2. History of high grade follicular lymphoma without evidence for recurrent disease this hospitalization. 3. Fractured port with plans for removal as an outpatient. HOSPITAL IMAGIN. Chest x-ray 06/09/19 shows no acute disease. 2. CT neck shows no lymphadenopathy by size criteria. No loculated fluid collection to suggest an abscess. 3. Catheter patency x-ray demonstrates the likely fractured catheter at the level of the superior vena cava, at the level of the clavicle and first rib. 4. Transthoracic echocardiogram is within normal limits with the EF of 55% to 60% and no valvular abnormalities. HOSPITAL COURSE: This is a 34-year-old female with a history of high grade follicular lymphoma who was treated with R-CHOP ending in January of 2019 and presented to the emergency department with complaints of fever, headache, discomfort in her mouth and a stiff neck. She was found to be profoundly neutropenic with an ANC of 0 and maximum temperature of 100.7 in the emergency department. The patient was subsequently admitted for neutropenic fever and treated with cefepime. She underwent lumbar puncture which was unremarkable. Infectious Disease specialist, Dr. Prasanth Rincon was consulted. The etiology of her neutropenia was quite puzzling. She was pancultured which was negative and multiple viral serologies were collected and all negative at the time of discharge. The patient remained intermittently febrile throughout her hospitalization with her last fever of 100.4 degrees Fahrenheit approximately 36 hours prior to discharge. Initial working diagnosis was that her neutropenia was likely due to a viral etiology, but after several days her ANC did not improve. She was subsequently started on growth factor support on 06/12/19, a 24 hours later remained with the neutrophil count of 0. She subsequently underwent bone marrow biopsy which final results are pending at the time of discharge, but initial pathology review shows normal cellular marrow with flow cytometry pending. The patient's neutrophil count eventually improved to 1800 the day of discharge and she was afebrile for a period of 36 hours at that time and was subsequently discharged to home. DISCHARGE PLAN AND DISPOSITION: The patient is being discharged to home in stable condition, where she lives with her . She does not require initial antibiotics as cultures were negative and she is not neutropenic. She will receive 1 additional dose of growth factor support on the day of discharge and has planned follow up with Dr. Marti to review final bone marrow biopsy results and repeat labs on 06/18/19. The patient is instructed to call with any recurrent fevers. Differential diagnosis at the time of discharge remain unspecified viral syndrome inducing neutropenia versus delayed onset neutropenia secondary to rituximab which she finished nearly 6 months ago. She was discovered to have a fractured port during this hospitalization and she was not getting any blood return, having pain with infusion. Port study demonstrated a likely fracture and will have port removed as an outpatient. Referred back to Dr. Vasquez who initially placed this port for removal. ERICK PEDERSEN [id number]/[facility] #: [id number] [place]
[2019-06-17 17:15] LABS: CSF West Nile Virus IgG Ab Negative (Negative); CSF West Nile Virus IgM Ab Negative (Negative)
[2019-06-19 11:51] LABS: FMDS Result Summary Normal; FMDS Source Left PIC
[2019-06-21 16:50] LABS: Coccidiodes CF (CSF) Negative (Negative); Coccidioides ID-IgG (CSF) Negative (Negative); Coccidioides ID-IgM (CSF) Negative (Negative)
== END 2019-06-15 09:35 | disposition home or self-care (01) | DRG 660 ==
LOC: ED 11:57 → MED 16:35
PROVIDERS: ADMIT Internal Medicine; ATTEND Internal Medicine Hematology & Oncology
PROC: 009U3ZX Drainage of Spinal Canal, Percutaneous Approach, Diagnostic (ICD-10-PCS; principal; 2019-06-09)
PROC: 07DR3ZX Extraction of Iliac Bone Marrow, Percutaneous Approach, Diagnostic (ICD-10-PCS; 2019-06-13)
DX: D70.1 Agranulocytosis secondary to cancer chemotherapy (principal); T82.514A Breakdown (mechanical) of infusion catheter, initial encounter; K12.30 Oral mucositis (ulcerative), unspecified; Y82.8 Other medical devices associated with adverse incidents; R01.1 Cardiac murmur, unspecified; T45.1X5A Adverse effect of antineoplastic and immunosuppressive drugs, initial encounter; B34.9 Viral infection, unspecified; R50.81 Fever presenting with conditions classified elsewhere; I80.8 Phlebitis and thrombophlebitis of other sites; G43.909 Migraine, unspecified, not intractable, without status migrainosus; Z88.0 Allergy status to penicillin; Z88.1 Allergy status to other antibiotic agents; Z85.72 Personal history of non-Hodgkin lymphomas; Z98.84 Bariatric surgery status; Z90.49 Acquired absence of other specified parts of digestive tract; Z83.3 Family history of diabetes mellitus; Y92.9 Unspecified place or not applicable; Z72.89 Other problems related to lifestyle; Z87.891 Personal history of nicotine dependence; Z97.5 Presence of (intrauterine) contraceptive device
CPT/HCPCS: 36415; 36598; 70491; 71045; 80048; 80053; 81003; 81015; 82945; 83605; 84157; 84484; 84702; 85025; 85060; 85097; 85610; 85730; 86140; 86308; 86618; 86635; 86664; 86665; 86788; 86789; 87040; 87070; 87086; 87205; 87476; 87497; 87529; 87798; 87899; 88184; 88187; 88188; 88189; 88271; 88305; 88311; 88313; 88341; 88342; 89051; 93306; 96365; 99232; 99233; 99239; 99284; 99406; A9270-GY; J0133; J0692; J2060; J2270; Q5101; Q9967